=== PATIENT | female | born 1995 | race Caucasian/White ===

== ENCOUNTER 2016-05-31 14:47 | Emergency (ER) | payer BC, OTHER ==
[2016-05-31] MEDS ORDERED: ONDANSETRON 4 MG TAB.RAPDIS PO ONE (16:02)
[2016-05-31] MEDS ORDERED: ONDANSETRON HCL INJ/PF 4 MG/2 ML SDV IM ONE (16:05)
--- NOTE | 2016-05-31 16:05 | ER Document Report ---
ED Medical Screen (RME) - General Stated Complaint: VOMITING Notes: Patient states she started vomiting this morning at 5 AM. No diarrhea, no fever. Patient complains of body aches. States unable to keep even the Zofran ODT down. I have greeted and performed a rapid initial assessment of this patient. A comprehensive ED assessment and evaluation of the patient, analysis of test results and completion of the medical decision making process will be conducted by additional ED providers. TRAVEL OUTSIDE OF THE [place] IN LAST 30 DAYS: No - Related Data Allergies/Adverse Reactions: No Known Allergies Allergy (Verified 05/31/16 16:01) Past Medical History - Immunizations Hx Diphtheria, Pertussis, Tetanus Vaccination: Yes Physical Exam - Vital signs Vitals: Temp Pulse Resp BP Pulse Ox 98.8 F 105 H 16 101/67 98 05/31/16 15:18 05/31/16 15:18 05/31/16 15:18 05/31/16 15:18 05/31/16 15:18 - Respiratory Respiratory status: No respiratory distress Breath sounds: Normal Course - Vital Signs Vital signs: Temp Pulse Resp BP Pulse Ox 98.8 F 105 H 16 101/67 98 05/31/16 15:18 05/31/16 15:18 05/31/16 15:18 05/31/16 15:18 05/31/16 15:18
[2016-05-31] MEDS ORDERED: DIPHENHYDRAMINE HCL 50 MG/ML VIAL IV ONE (21:22)
[2016-05-31] MEDS ORDERED: METOCLOPRAMIDE HCL INJ/PF 10 MG/2 ML SDV IV ONE (21:22)
[2016-05-31] MEDS ORDERED: KETOROLAC TROMETHAMINE INJ/PF 30 MG/1 ML SDV IV ONE (21:23)
--- NOTE | 2016-05-31 21:23 | ER Document Report ---
ED GI/ - General Mode of Arrival: Ambulatory Information source: Patient TRAVEL OUTSIDE OF THE [place] IN LAST 30 DAYS: No - HPI Patient complains to provider of: Abdominal pain, Vomiting Onset: Yesterday Timing/Duration: Persistent Quality of pain: Achy, Cramping Similar symptoms previously: Yes Recently seen / treated by doctor: No <MANDI PEACOCK - Last Filed: 05/31/16 21:23> <YASMIN GALLAGHER - Last Filed: 06/01/16 00:33> - General Chief Complaint: Vomiting Stated Complaint: VOMITING Notes: Patient is a 21-year-old female that presents to the emergency department today with complaints of vomiting since last night. Patient states that she has also had generalized body aches, "side pain", and lower abdominal pain. Patient states that roughly 4-5 years ago she had an episode where she "vomited for 27 days straight". Patient states she had an extensive workup done however she does not believe they found any pathology behind this. Patient states her vomiting "just stopped randomly". Patient denies any diarrhea. Patient states she does not know if she has had a fever but she has been having chills. (MANDI PEACOCK) - Related Data Allergies/Adverse Reactions: No Known Allergies Allergy (Verified 05/31/16 16:01) Past Medical History - General Information source: Patient - Social History Smoking Status: Never Smoker Cigarette use (# per day): No Chew tobacco use (# tins/day): No Frequency of alcohol use: Occasional Drug Abuse: None Lives with: Family Family History: Reviewed & Not Pertinent Patient has suicidal ideation: No Patient has homicidal ideation: No - Medical History Medical History: Negative Past Surgical History: Reports: Hx Abdominal Surgery - hernia repair, Hx Orthopedic Surgery - Left knee, Right shoulder - Immunizations Hx Diphtheria, Pertussis, Tetanus Vaccination: Yes <MANDI PEACOCK - Last Filed: 05/31/16 21:23> Review of Systems - Review of Systems Constitutional: See HPI, Chills. denies: Fever EENT: No symptoms reported Cardiovascular: No symptoms reported Respiratory: No symptoms reported Gastrointestinal: See HPI, Abdominal pain, Vomiting. denies: Diarrhea Genitourinary: No symptoms reported Female Genitourinary: No symptoms reported Musculoskeletal: See HPI, Back pain, Joint pain - generalized body aches Skin: No symptoms reported Hematologic/Lymphatic: No symptoms reported Neurological/Psychological: No symptoms reported -: Yes All other systems reviewed and negative <MANDI PEACOCK - Last Filed: 05/31/16 21:23> Physical Exam <MANDI PEACOCK - Last Filed: 05/31/16 21:23> <YASMIN GALLAGHER - Last Filed: 06/01/16 00:33> - Vital signs Vitals: Temp Pulse Resp BP Pulse Ox 98.8 F 105 H 16 101/67 98 05/31/16 15:18 05/31/16 15:18 05/31/16 15:18 05/31/16 15:18 05/31/16 15:18 - Notes Notes: Physical Exam: General: Alert, appears well. HEENT: Normocephalic. Atraumatic. PERRL. Extraocular movements intact. Oropharynx clear. Neck: Supple. Non-tender. Respiratory: No respiratory distress. Clear and equal breath sounds bilaterally. Cardiovascular: Regular rate and rhythm. Abdominal: Obese. Tenderness across the abdomen with deep palpation to the entire lower half of the abdomen. No distension. Nearly absent bowel sounds. Back: Mild lumbar paraspinal musculature tenderness with palpation. No CVA tenderness with percussion. Extremities: Moves all four extremities. Upper extremities: Normal inspection. Normal ROM. No edema. Lower extremities: Normal inspection. No edema. Normal ROM. Neurological: Normal cognition. AAOx4. Normal speech. Psychological: Normal affect. Normal Mood. Skin: Warm. Dry. Normal color. (MANDI PEACOCK) Course <MANDI PEACOCK - Last Filed: 05/31/16 21:23> - Laboratory Result Diagrams: 05/31/16 22:29 05/31/16 22:29 <YASMIN GALLAGHER - Last Filed: 06/01/16 00:33> - Re-evaluation Re-evalutation: 06/01/16 00:27 Patient has had almost 3 L of IV fluids. She has not been vomiting. She is awakened for reexam, and reports that she does feel much better and feels comfortable going home. Be given a prescription for the Reglan which seemed to work much better than Zofran. (YASMIN GALLAGHER) - Vital Signs Vital signs: Temp Pulse Resp BP Pulse Ox 98.8 F 105 H 16 101/67 98 05/31/16 15:18 05/31/16 15:18 05/31/16 15:18 05/31/16 15:18 05/31/16 15:18 - Laboratory Laboratory results interpreted by me: 05/31/16 05/31/16 22:29 22:29 RDW 14.2 H Seg Neuts % (Manual) 86 H Lymphocytes % (Manual) 5 L Abs Lymphs (Manual) 0.4 L Urine Protein 30 H Urine Ketones TRACE H Ur Leukocyte Esterase TRACE H Discharge <MANDI PEACOCK - Last Filed: 05/31/16 21:23> <YASMIN GALLAGHER - Last Filed: 06/01/16 00:33> - Discharge Clinical Impression: Dehydration Nausea and vomiting Qualifiers: Vomiting type: unspecified Vomiting Intractability: non-intractable Qualified Code(s): R11.2 - Nausea with vomiting, unspecified Condition: Stable Disposition: HOME, SELF-CARE Additional Instructions: Nausea or Vomiting, Nonspecific: Vomiting (or nausea without vomiting) can be caused by many different problems. Of course, it can mean that something's wrong with the stomach, such as "stomach flu," ulcers, or inflammation. But it can also be a symptom of a problem that has nothing to do with the stomach or intestines. Vomiting is common with severe headaches, earaches, and tonsillitis. We see it with pneumonia or heart attacks. Drugs can cause nausea. Many abdominal problems cause vomiting; for example, gallstones, kidney stones, pancreatitis, and intestinal obstruction (blocked bowels). In most cases, curing the vomiting depends on fixing the problem that caused it. For temporary relief, we may use an anti-nausea medicine. For home use, we can prescribe suppositories, chewable pills, pills that dissolve in the mouth, or liquid anti-nausea drugs. If the vomiting seems to be caused by a problem in the stomach, acid-suppressing drugs may be prescribed as well. It's important to avoid dehydration. Sip clear liquids. Take increasing amounts of fluid over the first 24 hours. Then start small amounts of bland foods (such as dry toast, applesauce, mashed potato). Avoid aspirin, tobacco, and alcohol. Gradually resume your usual diet. If the vomiting worsens, if the problem that's making you vomit worsens, or if there's evidence of bleeding in the stomach (such as black, tarry stool, bloody or black vomit, or lightheadedness), you should return immediately. Call your doctor if you aren't improved in 24 to 36 hours. TAKE THE REGLAN PRESCRIBED FOR NAUSEA IF NEEDED. YOU MAY ADD BENADRYL FOR ADDITIONAL NAUSEA CONTROL. DRINK COOL CLEAR LIQUIDS TODAY. REST. FOLLOW UP WITH A LOCAL MEDICAL DOCTOR IF NOT IMPROVING. RETURN TO THE EMERGENCY ROOM IF ANY NEW OR WORSENING SYMPTOMS. We do not have Reglan to dispense, however you will be given Zofran dispense pack for this evening if needed. Prescriptions: Metoclopramide HCl [Reglan 10 mg Tablet] 1 tab PO ASDIR PRN #15 tablet PRN Reason: Forms: Return to Work Scribe Attestation: 06/01/16 00:33 I personally performed the services described in the documentation, reviewed and edited the documentation which was dictated to the scribe in my presence, and it accurately records my words and actions. (YASMIN GALLAGHER) Scribe Documentation - Scribe Written by Davina:: Davina Cornelius, 05/31/2016 2137 acting as scribe for :: Usha <MANDI PEACOCK - Last Filed: 05/31/16 21:23>
[2016-05-31] MEDS: NORMAL SALINE 1000 ML 1,000 ML IV PRN ×2 (22:27→23:00)
[2016-05-31 22:43] LABS: HEMATOCRIT 38.6 % (36.0-47.0); HEMOGLOBIN 13.4 g/dL (12.0-15.5); HGB HCT DIFFERENCE 1.6; MEAN CORPUSCULAR HEMOGLOBIN 29.3 pg (27.0-33.4); MEAN CORPUSCULAR HGB CONC 34.7 g/dL (32.0-36.0); MEAN CORPUSCULAR VOLUME 85 fl (80-97); RED BLOOD COUNT 4.56 10^6/uL (3.72-5.28); RED CELL DISTRIBUTION WIDTH 14.2 % (11.5-14.0); WHITE BLOOD COUNT 7.8 10^3/uL (4.0-10.5)
[2016-05-31 22:49] LABS: AMORPHOUS SEDIMENT,URINE 1+ /HPF; APPEARANCE,URINE TURBID; BILIRUBIN,URINE NEGATIVE (NEGATIVE); GLUCOSE, URINE NEGATIVE (NEGATIVE); KETONES,URINE TRACE mg/dL (NEGATIVE); LEUKOCYTE ESTERASE,URINE TRACE (NEGATIVE); NITRITE,URINE NEGATIVE (NEGATIVE); PROTEIN,URINE 30 mg/dL (NEGATIVE); URINE SPECIFIC GRAVITY 1.033; UROBILINOGEN,URINE NEGATIVE mg/dL (<2.0)
[2016-05-31 22:57] LABS: ALANINE AMINOTRANSFERASE 45 U/L (9-52); ALBUMIN 4.7 g/dL (3.5-5.0); ALKALINE PHOSPHATASE 76 U/L (38-126); ANION GAP 14 (5-19); ASPARTATE AMINO TRANSFERASE 34 U/L (14-36); BILIRUBIN,DIRECT 0.1 mg/dL (0.0-0.4); BILIRUBIN,TOTAL 0.8 mg/dL (0.2-1.3); BLOOD UREA NITROGEN 12 mg/dL (7-20); CALCIUM 9.2 mg/dL (8.4-10.2); CARBON DIOXIDE 25 mmol/L (22-30); CHLORIDE 101 mmol/L (98-107); CREATININE RESULT 0.68 mg/dL (0.52-1.25); GLUCOSE 93 mg/dL (75-110); POTASSIUM 3.7 mmol/L (3.6-5.0); TOTAL PROTEIN 7.7 g/dL (6.3-8.2)
[2016-05-31 23:00] LABS: BASOPHILS % (MANUAL) 0 % (0-2); EOSINOPHILS % (MANUAL) 1 % (0-6); LYMPHOCYTES % (MANUAL) 5 % (13-45); TOTAL CELLS COUNTED 100
[2016-05-31 23:01] LABS: ANISOCYTOSIS SLIGHT; TOXIC GRANULATION SLIGHT
[2016-05-31] MEDS ORDERED: DEXTROSE 5%-LACTATED RINGERS 1,000 ML IV ONE (23:10)
[2016-06-01] MEDS ORDERED: ONDANSETRON ODT 4 MG TAB (6 TAB/DSPK) PO PRN (00:34)
[2016-06-01 01:16] VITALS: BP 103/53
== END 2016-06-01 01:16 | disposition home or self-care (01) ==
LOC: ER 14:47
DX: E86.0 Dehydration (principal); R11.2 Nausea with vomiting, unspecified; R10.9 Unspecified abdominal pain; R11.10 Vomiting, unspecified; R52 Pain, unspecified; R50.9 Fever, unspecified
CPT/HCPCS: 99284; 96372; 96361; 96374; 96375; 36415; 87040; 84703; 85025; 80053; 81001; J1200; J1885; J2765; J2405; J7030

== ENCOUNTER 2016-06-30 17:28 | Emergency (ER) | payer BC ==
--- NOTE | 2016-06-30 20:17 | ER Document Report ---
ED GI/ - General Chief Complaint: Vaginal Bleeding Stated Complaint: LOWER ABDOMINAL PAIN Mode of Arrival: Ambulatory Information source: Patient Notes: Patient is a 21-year-old female presenting to the emergency department for vaginal bleeding and abdominal cramping. Patient was seen and clinic today and had a positive urine test at 13:00. Patient is G3L1M1. Patient states that she has had vaginal bleeding ongoing the past 2-3 weeks that is waxing and waning. Patient states she has had abdominal cramping for 2 days. Patient is using tampon and she knows she is. Patient states she has dark brown blood and lots of blood comes out after taking the tampon out. Patient's last menstrual cycle was 05/11/16. Patient has a history of miscarriage 2 years ago and ovarian cysts. Patient has no known allergies. TRAVEL OUTSIDE OF THE [place] IN LAST 30 DAYS: No - HPI Patient complains to provider of: , Vaginal bleeding Onset: Other - see HPI note Quality of pain: Cramping Context: Vaginal bleeding (Compared to normal period): Spotting LMP: 05/11/16 : 3 Para: 1 Abortions: 1 - Related Data Allergies/Adverse Reactions: No Known Allergies Allergy (Verified 06/30/16 19:24) Past Medical History - General Information source: Patient Last Menstrual Period: 05/12/2016 - Social History Smoking Status: Unknown if Ever Smoked Family History: None Patient has suicidal ideation: No Patient has homicidal ideation: No Renal/ Medical History: Reports: Hx Ovarian Cysts Past Surgical History: Reports: Hx Abdominal Surgery - hernia repair, Hx Orthopedic Surgery - Left knee, Right shoulder - Immunizations Hx Diphtheria, Pertussis, Tetanus Vaccination: Yes Review of Systems - Review of Systems Constitutional: No symptoms reported EENT: No symptoms reported Cardiovascular: No symptoms reported Respiratory: No symptoms reported Gastrointestinal: No symptoms reported Genitourinary: No symptoms reported Female Genitourinary: See HPI, Last menstrual period - 05/11/16, , Irregular period, Vaginal bleeding Musculoskeletal: No symptoms reported Skin: No symptoms reported Hematologic/Lymphatic: No symptoms reported Neurological/Psychological: No symptoms reported -: Yes All other systems reviewed and negative Physical Exam - Vital signs Vitals: Temp Pulse Resp BP Pulse Ox 98.5 F 84 16 112/66 99 06/30/16 17:49 06/30/16 17:49 06/30/16 17:49 06/30/16 17:49 06/30/16 17:49 Interpretation: Normal - General General appearance: Appears well, Alert In distress: Mild - HEENT Head: Normocephalic, Atraumatic Eyes: Normal Pupils: PERRL Mucous membranes: Moist - Respiratory Respiratory status: No respiratory distress Chest status: Nontender Breath sounds: Normal Chest palpation: Normal - Cardiovascular Rhythm: Regular Heart sounds: Normal auscultation Murmur: No - Abdominal Inspection: Normal Distension: No distension Bowel sounds: Normal Tenderness: Nontender Organomegaly: No organomegaly - Genitourinary External exam: Normal Speculum exam: Cervix closed Vaginal bleeding: None - no active bleeding but some dried/old blood - Back Back: Normal, Nontender - Extremities General upper extremity: Normal inspection, Normal ROM, Normal strength General lower extremity: Normal inspection, Normal ROM, Normal strength - Neurological Neuro grossly intact: Yes Cognition: Normal Orientation: AAOx4 [place] Coma Scale Eye Opening: Spontaneous [place] Coma Scale Verbal: Oriented [place] Coma Scale Motor: Obeys Commands Kiera Coma Scale Total: 15 Speech: Normal Sensory: Normal - Psychological Associated symptoms: Normal affect, Normal mood - Skin Skin Temperature: Warm Skin Moisture: Dry Course - Vital Signs Vital signs: Temp Pulse Resp BP Pulse Ox 98.5 F 84 16 112/66 99 06/30/16 17:49 06/30/16 17:49 06/30/16 17:49 06/30/16 17:49 06/30/16 17:49 - Laboratory Laboratory results interpreted by me: 06/30/16 19:36 Beta HCG, Quant 409.90 H Scribe Documentation - Scribe Written by Scribmalik:: Candi Delgado 06/30/16 20:20 acting as scribe for :: Diego
--- NOTE | 2016-06-30 20:56 | ER Document Report ---
ED Medical Screen (RME) - General Mode of Arrival: Ambulatory Information source: Patient TRAVEL OUTSIDE OF THE [place] IN LAST 30 DAYS: No - HPI Onset: Other - see HPI note - General Stated Complaint: LOWER ABDOMINAL PAIN Notes: Patient is a 21-year-old female presenting to the emergency department for vaginal bleeding and abdominal cramping. Patient was seen and clinic today and had a positive urine test at 13:00. Patient is G3L1M1. Patient states that she has had vaginal bleeding ongoing the past 2-3 weeks that is waxing and waning. Patient states she has had abdominal cramping for 2 days. Patient is using tampon and she knows she is. Patient states she has dark brown blood and lots of blood comes out after taking the tampon out. Patient's last menstrual cycle was 05/11/16. Patient has a history of miscarriage 2 years ago and ovarian cysts. Patient has no known allergies. (LEVON DELGADO) - Related Data Allergies/Adverse Reactions: No Known Allergies Allergy (Verified 06/30/16 19:24) Past Medical History - General Information source: Patient Last Menstrual Period: 05/12/2016 - Social History Family history: None Renal/ Medical History: Reports: Hx Ovarian Cysts Past Surgical History: Reports: Hx Abdominal Surgery - hernia repair, Hx Orthopedic Surgery - Left knee, Right shoulder - Immunizations Hx Diphtheria, Pertussis, Tetanus Vaccination: Yes Review of Systems - Review of Systems Constitutional: No symptoms reported EENT: No symptoms reported Cardiovascular: No symptoms reported Respiratory: No symptoms reported Gastrointestinal: See HPI, Abdominal pain Genitourinary: No symptoms reported Female Genitourinary: See HPI, Last menstrual period - 05/11/16, , Vaginal bleeding Musculoskeletal: No symptoms reported Skin: No symptoms reported Hematologic/Lymphatic: No symptoms reported Neurological/Psychological: No symptoms reported -: Yes All other systems reviewed and negative Physical Exam - Vital signs Interpretation: Normal - General General appearance: Appears well, Alert In distress: Mild - HEENT Head: Normocephalic, Atraumatic Eyes: Normal Pupils: PERRL Mucous membranes: Moist - Respiratory Respiratory status: No respiratory distress Chest status: Nontender Breath sounds: Normal Chest palpation: Normal - Cardiovascular Rhythm: Regular Heart sounds: Normal auscultation Murmur: No - Abdominal Inspection: Normal Distension: No distension Bowel sounds: Normal Tenderness: Nontender Organomegaly: No organomegaly - Genitourinary External exam: Normal Speculum exam: Cervix closed Vaginal bleeding: None - no active bleeding but some dried/old blood - Back Back: Normal, Nontender - Extremities General upper extremity: Normal inspection, Normal ROM, Normal strength General lower extremity: Normal inspection, Normal ROM, Normal strength - Neurological Neuro grossly intact: Yes Cognition: Normal Orientation: AAOx4 [place] Coma Scale Eye Opening: Spontaneous Kiera Coma Scale Verbal: Oriented Kiera Coma Scale Motor: Obeys Commands Kiera Coma Scale Total: 15 Speech: Normal Sensory: Normal - Psychological Associated symptoms: Normal affect, Normal mood - Skin Skin Temperature: Warm Skin Moisture: Dry Skin Color: Normal Course - Re-evaluation Re-evalutation: 06/30/16 21:01 Patient presented the emergency per with chief plain of addled vaginal bleeding and lower abdominal cramping. Patient states she is . She noticed for the last 2 or 3 days she's had dark spotting she says she has a tampon in and she doesn't bleeding so she takes the tampon out there is no bright red bleeding. On pelvic examination cervical os is closed she got full blood in there but not active bleeding. Quantitative beta hCG is 400. She has some lower abdominal pain but no guarding rebound or rigidity straight catheter urinalysis is pending at this point. She is transferred to the back pending urinalysis and further assessment and disposition. (BECCA DIAZ) - Vital Signs Vital signs: Temp Pulse Resp BP Pulse Ox 98.5 F 84 16 112/66 99 06/30/16 17:49 06/30/16 17:49 06/30/16 17:49 06/30/16 17:49 06/30/16 17:49 - Laboratory Laboratory results interpreted by me: 06/30/16 19:36 Beta HCG, Quant 409.90 H Scribe Documentation - Scribe Written by Scribe:: Levon Delgado 06/30/16 20:55 acting as scribe for :: Diego
--- NOTE | 2016-06-30 21:39 | ER Document Report ---
ED GI/ - General Chief Complaint: Vaginal Bleeding Stated Complaint: LOWER ABDOMINAL PAIN Time seen by provider: 21:38 Mode of Arrival: Ambulatory Information source: Patient TRAVEL OUTSIDE OF THE [place] IN LAST 30 DAYS: No - HPI Patient complains to provider of: Pelvic pain, , Vaginal bleeding Onset: Other - 2 weeks Timing/Duration: Waxing and waning Quality of pain: Cramping Severity at maximum: Mild Severity in ED: None Vaginal bleeding (Compared to normal period): Spotting, Heavier, Passing clots Menstrual period history: Associated symptoms: Nausea Exacerbated by: Denies Relieved by: Denies Recently seen / treated by doctor: Yes Notes: 07/01/16 02:40 Patient is a 21-year-old female presenting to the emergency department for vaginal bleeding and abdominal cramping that's been going on for the past 2-3 weeks, at times spotting and at other times it's heavier with clots, she's had mild cramping at times as well, patient was seen by her [facility] earlier in the today and had a positive test, was told to come to the emergency room for further evaluation Patient is G3L1M1. - Related Data Allergies/Adverse Reactions: No Known Allergies Allergy (Verified 06/30/16 21:53) Past Medical History - General Information source: Patient Last Menstrual Period: 05/12/2016 - Social History Smoking Status: Unknown if Ever Smoked Family History: Reviewed & Not Pertinent Patient has suicidal ideation: No Patient has homicidal ideation: No Renal/ Medical History: Reports: Hx Ovarian Cysts. Denies: Hx Peritoneal Dialysis Past Surgical History: Reports: Hx Abdominal Surgery - hernia repair, Hx Orthopedic Surgery - Left knee, Right shoulder - Immunizations Hx Diphtheria, Pertussis, Tetanus Vaccination: Yes Review of Systems - Review of Systems Constitutional: No symptoms reported EENT: No symptoms reported Cardiovascular: No symptoms reported Respiratory: No symptoms reported Gastrointestinal: No symptoms reported Genitourinary: No symptoms reported Female Genitourinary: See HPI, , Vaginal bleeding Musculoskeletal: No symptoms reported Skin: No symptoms reported Hematologic/Lymphatic: No symptoms reported Neurological/Psychological: No symptoms reported -: Yes All other systems reviewed and negative Physical Exam - Vital signs Vitals: Temp Pulse Resp BP Pulse Ox 98.5 F 84 16 112/66 99 06/30/16 17:49 06/30/16 17:49 06/30/16 17:49 06/30/16 17:49 06/30/16 17:49 Interpretation: Normal - General General appearance: Appears well, Alert - HEENT Head: Normocephalic, Atraumatic Eyes: Normal Pupils: PERRL - Respiratory Respiratory status: No respiratory distress Chest status: Nontender Breath sounds: Normal Chest palpation: Normal - Cardiovascular Rhythm: Regular Heart sounds: Normal auscultation Murmur: No - Abdominal Inspection: Normal Distension: No distension Bowel sounds: Normal Tenderness: Nontender Organomegaly: No organomegaly - Back Back: Normal, Nontender - Extremities General upper extremity: Normal inspection, Nontender, Normal color, Normal ROM , Normal temperature General lower extremity: Normal inspection, Nontender, Normal color, Normal ROM , Normal temperature, Normal weight bearing. No: Becky's sign - Neurological Neuro grossly intact: Yes Cognition: Normal Orientation: AAOx4 [place] Coma Scale Eye Opening: Spontaneous [place] Coma Scale Verbal: Oriented [place] Coma Scale Motor: Obeys Commands [place] Coma Scale Total: 15 Speech: Normal Motor strength normal: LUE, RUE, LLE, RLE - Psychological Associated symptoms: Normal affect, Normal mood - Skin Skin Temperature: Warm Skin Moisture: Dry Skin Color: Normal Course - Re-evaluation Re-evalutation: 07/01/16 02:45 Lab findings were discussed with patient at bedside, patient's quantitative hCG is only 409, her last menstrual period was May 11, patient was advised to follow back up with [facility] or return to the emergency room if symptoms worsen, she was given a slip to get an outpatient beta quantitative hCG within the next 2-3 days, patient acknowledges understanding and agreement with this plan - Vital Signs Vital signs: Temp Pulse Resp BP Pulse Ox 98.2 F 87 12 120/73 98 06/30/16 21:58 06/30/16 21:58 06/30/16 21:58 06/30/16 21:58 06/30/16 21:58 - Laboratory Laboratory results interpreted by me: 06/30/16 06/30/16 19:36 20:45 Beta HCG, Quant 409.90 H Urine Ketones TRACE H Discharge - Discharge Clinical Impression: Vaginal bleeding before 22 weeks gestation Qualifiers: Weeks of gestation: less than 8 weeks Qualified Code(s): Z3A.01 - Less than 8 weeks gestation of Condition: Stable Disposition: HOME, SELF-CARE Instructions: Bleeding During Early ([facility]), ([facility]) Additional Instructions: Have repeat blood work done in 2-3 days to check your hormone level. Follow up with your [facility] in 2-3 days. Return to the nearest emergency room immediately if symptoms worsen or any additional concerns. Forms: Follow-Up Laboratory Testing
[2016-06-30 21:53] LABS: AMORPHOUS SEDIMENT,URINE 1+ /HPF; APPEARANCE,URINE TURBID; BILIRUBIN,URINE NEGATIVE (NEGATIVE); GLUCOSE, URINE NEGATIVE (NEGATIVE); KETONES,URINE TRACE mg/dL (NEGATIVE); LEUKOCYTE ESTERASE,URINE NEGATIVE (NEGATIVE); NITRITE,URINE NEGATIVE (NEGATIVE); PROTEIN,URINE NEGATIVE (NEGATIVE); URINE SPECIFIC GRAVITY 1.032; UROBILINOGEN,URINE NEGATIVE mg/dL (<2.0)
[2016-06-30 21:59] VITALS: BP 120/73
== END 2016-06-30 21:57 | disposition home or self-care (01) ==
LOC: ER 17:28
DX: O46.91 Antepartum hemorrhage, unspecified, first trimester (principal); Z3A.01 Less than 8 weeks gestation of pregnancy; R10.30 Lower abdominal pain, unspecified
CPT/HCPCS: 36415; 51701; 81001; 84702; 86900; 86901; 99284

== ENCOUNTER → 2016-07-02 | Outpatient (CLI) | payer BC | LOC: LAB 17:20 | PROVIDERS: ATTEND Emergency Medicine | DX: O46.90 Antepartum hemorrhage, unspecified, unspecified trimester (principal) | CPT/HCPCS: 36415; 84702 ==

== ENCOUNTER → 2016-07-05 | Outpatient (CLI) | payer BC | LOC: OD 10:17 | PROVIDERS: ATTEND Obstetrics & Gynecology | DX: O20.0 Threatened abortion (principal) | CPT/HCPCS: 36415; 84702 ==

== ENCOUNTER 2016-07-06 07:28 | Day surgery (SDC) | payer BC ==
[2016-07-06 08:06] LABS: ABSOLUTE EOSINOPHILS # (AUTO) 0.1 10^3/uL (0.0-0.6); ABSOLUTE LYMPHOCYTES (AUTO) 1.1 10^3/uL (0.5-4.7); ABSOLUTE MONOCYTES (AUTO) 0.4 10^3/uL (0.1-1.4); ABSOLUTE NEUT (AUTO) 3.6 10^3/uL (1.7-8.2); BASOPHILS % (AUTO) 0.5 % (0-2); EOSINOPHILS % (AUTO) 1.4 % (0-6); HEMATOCRIT 35.3 % (36.0-47.0); HEMOGLOBIN 12.1 g/dL (12.0-15.5); LYMPHOCYTES % (AUTO) 20.9 % (13-45); MEAN CORPUSCULAR HEMOGLOBIN 29.4 pg (27.0-33.4); MEAN CORPUSCULAR HGB CONC 34.4 g/dL (32.0-36.0); MEAN CORPUSCULAR VOLUME 85 fl (80-97); MONOCYTES % (AUTO) 8.2 % (3-13); RED BLOOD COUNT 4.13 10^6/uL (3.72-5.28); RED CELL DISTRIBUTION WIDTH 14.1 % (11.5-14.0); WHITE BLOOD COUNT 5.1 10^3/uL (4.0-10.5)
[2016-07-06] MEDS ORDERED: FENTANYL CITRATE INJ/PF 100 MCG/2 ML AMPUL ONE ×2 (09:06→10:23)
[2016-07-06] MEDS ORDERED: PROPOFOL INJ 200 MG/20 ML VIAL IV ONE (09:06)
[2016-07-06] MEDS ORDERED: MIDAZOLAM 2 MG/2 ML INJ ONE (09:06)
[2016-07-06] MEDS ORDERED: FENTANYL CITRATE INJ/PF 100 MCG/2 ML AMPUL IV PRN ×3 (09:41)
[2016-07-06] MEDS ORDERED: PROMETHAZINE HCL INJ 25 MG/1 ML VIAL IV PRN ×2 (09:41)
[2016-07-06] MEDS ORDERED: DIPHENHYDRAMINE HCL 50 MG/ML VIAL IV PRN (09:41)
[2016-07-06] MEDS ORDERED: MORPHINE SULFATE 10 MG/ML INJ IV PRN (09:41)
[2016-07-06] MEDS ORDERED: OXYCODONE-ACETAMINOPHEN 5-325 MG TABLET PO PRN ×3 (09:41→10:22)
[2016-07-06] MEDS ORDERED: MEPERIDINE HCL/PF INJ 25 MG/1 ML DISP.SYRIN IV PRN (09:41)
--- NOTE | 2016-07-06 09:59 | Operative Report ---
Operative Report DATE OF SURGERY: 07/06/16 PREOPERATIVE DIAGNOSIS: Miscarriage versus ectopic POSTOPERATIVE DIAGNOSIS: Most likely miscarriage OPERATION: Suction D&C SURGEON: SHINE MEADOWS ANESTHESIA: GA TISSUE REMOVED OR ALTERED: Uterine contents COMPLICATIONS: None ESTIMATED BLOOD LOSS: 10 mL INTRAOPERATIVE FINDINGS: Sound to 10 cm before and after the case, dilated cervix and tissue present in the uterus. PROCEDURE: Patient has a very slowly rising Quant hCG now at the level of 645. Ultrasound shows no intrauterine . We have ruled out a viable because of the very slowly rising Quant but are concerned about risk of ectopic. This reason we are proceeding with a D&C to see if there is a in the uterus. Patient was taken to the OR and placed in supine position. Gen. anesthesia was induced. She is placed in dorsal lithotomy position using Manas stirrups. Her perineum and vagina were prepared and draped in sterile fashion. Weighted speculum was placed in the vagina. Anterior lip cervix grasped with a tenaculum. Sound 10 cm before and after the case. The cervix was open and did not need dilatation. There was tissue passing. A size 8 suction curette was then used to evacuate uterine contents. At the end the end of the case all instruments were removed. She she was placed in supine position and extubated and taken to recovery in stable condition.
[2016-07-06] MEDS ORDERED: ONDANSETRON 4 MG TAB.RAPDIS PO PRN (10:22)
[2016-07-06] MEDS ORDERED: SUCCINYLCHOLINE CHLORIDE INJ 200 MG/10 ML VIAL ONE (10:38)
[2016-07-06] MEDS ORDERED: KETOROLAC TROMETHAMINE 60 MG/2 ML SDV ONE (10:38)
[2016-07-06] MEDS ORDERED: ONDANSETRON HCL INJ/PF 4 MG/2 ML SDV ONE (10:38)
[2016-07-06] MEDS ORDERED: DEXAMETHASONE SOD PHOSPHATE INJ 4 MG/1 ML VIAL ONE (10:38)
[2016-07-06 12:03] VITALS: BP 115/72
== END 2016-07-06 12:00 | disposition home or self-care (01) ==
LOC: OROUT 07:28
PROVIDERS: ATTEND Obstetrics & Gynecology
PROC: 10D17ZZ Extraction of Products of Conception, Retained, Via Natural or Artificial Opening (ICD-10-PCS; principal; 2016-07-06 09:30)
DX: O02.1 Missed abortion (principal)
CPT/HCPCS: 36415; 85025; 81025; 88305 ×2; 59820; J2250; J1100; J1885; J3010; J0330; J2405; J2704; 1965

== ENCOUNTER → 2016-07-07 | Outpatient (CLI) | payer BC ==
[2016-07-07 13:28] LABS: ABSOLUTE LYMPHOCYTES (AUTO) 1.5 10^3/uL (0.5-4.7); ABSOLUTE MONOCYTES (AUTO) 0.7 10^3/uL (0.1-1.4); ABSOLUTE NEUT (AUTO) 9.2 10^3/uL (1.7-8.2); BASOPHILS % (AUTO) 0.2 % (0-2); EOSINOPHILS % (AUTO) 0.2 % (0-6); HEMATOCRIT 34.6 % (36.0-47.0); HEMOGLOBIN 11.8 g/dL (12.0-15.5); HGB HCT DIFFERENCE 0.8; LYMPHOCYTES % (AUTO) 13.2 % (13-45); MEAN CORPUSCULAR HGB CONC 34.1 g/dL (32.0-36.0); MEAN CORPUSCULAR VOLUME 85 fl (80-97); MONOCYTES % (AUTO) 5.7 % (3-13); RED BLOOD COUNT 4.08 10^6/uL (3.72-5.28); RED CELL DISTRIBUTION WIDTH 14.1 % (11.5-14.0); SEGMENTED NEUTROPHILS % (AUTO) 80.7 % (42-78)
[2016-07-07 13:35] LABS: WHITE BLOOD COUNT 11.4 10^3/uL (4.0-10.5)
[2016-07-07 14:05] LABS: ALANINE AMINOTRANSFERASE 24 U/L (9-52); ALBUMIN 4.4 g/dL (3.5-5.0); ALKALINE PHOSPHATASE 62 U/L (38-126); ANION GAP 15 (5-19); ASPARTATE AMINO TRANSFERASE 16 U/L (14-36); BILIRUBIN,DIRECT 0.4 mg/dL (0.0-0.4); BILIRUBIN,TOTAL 0.6 mg/dL (0.2-1.3); BLOOD UREA NITROGEN 12 mg/dL (7-20); CALCIUM 9.3 mg/dL (8.4-10.2); CARBON DIOXIDE 23 mmol/L (22-30); CHLORIDE 104 mmol/L (98-107); CREATININE RESULT 0.68 mg/dL (0.52-1.25); GLUCOSE 107 mg/dL (75-110); POTASSIUM 4.1 mmol/L (3.6-5.0); SODIUM 141.6 mmol/L (137-145); TOTAL PROTEIN 7.5 g/dL (6.3-8.2)
== END ==
LOC: OD 12:27
PROVIDERS: ATTEND Obstetrics & Gynecology
DX: O00.90 Unspecified ectopic pregnancy without intrauterine pregnancy (principal)
CPT/HCPCS: 36415; 80053; 84702; 85025

== ENCOUNTER 2016-08-20 21:19 | Emergency (ER) | payer BC ==
[2016-08-20] MEDS ORDERED: NORMAL SALINE 1000 ML 1,000 ML IV PRN (21:26)
[2016-08-20 21:35] LABS: ABSOLUTE EOSINOPHILS # (AUTO) 0.1 10^3/uL (0.0-0.6); ABSOLUTE LYMPHOCYTES (AUTO) 1.3 10^3/uL (0.5-4.7); ABSOLUTE MONOCYTES (AUTO) 0.9 10^3/uL (0.1-1.4); ABSOLUTE NEUT (AUTO) 5.9 10^3/uL (1.7-8.2); BASOPHILS % (AUTO) 0.5 % (0-2); EOSINOPHILS % (AUTO) 1.2 % (0-6); HEMATOCRIT 36.8 % (36.0-47.0); HEMOGLOBIN 12.5 g/dL (12.0-15.5); HGB HCT DIFFERENCE 0.7; LYMPHOCYTES % (AUTO) 16.1 % (13-45); MEAN CORPUSCULAR HEMOGLOBIN 28.9 pg (27.0-33.4); MEAN CORPUSCULAR VOLUME 85 fl (80-97); MONOCYTES % (AUTO) 10.8 % (3-13); RED BLOOD COUNT 4.32 10^6/uL (3.72-5.28); RED CELL DISTRIBUTION WIDTH 13.1 % (11.5-14.0); SEGMENTED NEUTROPHILS % (AUTO) 71.4 % (42-78); WHITE BLOOD COUNT 8.2 10^3/uL (4.0-10.5)
[2016-08-20 21:48] LABS: ALANINE AMINOTRANSFERASE 27 U/L (9-52); ALBUMIN 4.6 g/dL (3.5-5.0); ALKALINE PHOSPHATASE 79 U/L (38-126); ANION GAP 14 (5-19); ASPARTATE AMINO TRANSFERASE 25 U/L (14-36); BILIRUBIN,DIRECT 0.3 mg/dL (0.0-0.4); BILIRUBIN,TOTAL 0.7 mg/dL (0.2-1.3); BLOOD UREA NITROGEN 16 mg/dL (7-20); CALCIUM 9.7 mg/dL (8.4-10.2); CARBON DIOXIDE 24 mmol/L (22-30); CHLORIDE 103 mmol/L (98-107); CREATININE RESULT 0.88 mg/dL (0.52-1.25); GLUCOSE 84 mg/dL (75-110); POTASSIUM 3.8 mmol/L (3.6-5.0); SODIUM 140.7 mmol/L (137-145)
[2016-08-20] MEDS ORDERED: NORMAL SALINE 1000 ML 1,000 ML IV ONE (22:10)
--- NOTE | 2016-08-20 22:34 | ER Document Report ---
ED Syncope and Near Syncope - General Chief Complaint: Syncope Stated Complaint: POSSIBLE SYNCOPE Time Seen by Provider: 08/20/16 21:26 Notes: Patient is a 21-year-old female who is brought in for syncope. Patient was playing softball all day and 90 weather. Patient states that she did not urinate much today. Denies any past medical history, allergies. Patient had D& C a few weeks ago. Godfrey nauseated and vomited on the way here. No abdominal pain. No diarrhea. No headache or fever. TRAVEL OUTSIDE OF THE [place] IN LAST 30 DAYS: No - HPI Patient complains to provider of: Fainting Episode witnessed (by whom): Yes Symptoms prior to episode: Lightheaded Quality of pain: No pain - Related Data Allergies/Adverse Reactions: No Known Allergies Allergy (Verified 06/30/16 21:53) Past Medical History - General Information source: Patient - Social History Smoking Status: Unknown if Ever Smoked Family History: Reviewed & Not Pertinent - Past Medical History Cardiac Medical History: Denies: Hx Coronary Artery Disease, Hx Heart Attack, Hx Hypertension Pulmonary Medical History: Denies: Hx Asthma, Hx Bronchitis, Hx COPD, Hx Pneumonia Neurological Medical History: Denies: Hx Cerebrovascular Accident, Hx Seizures Renal/ Medical History: Reports: Hx Ovarian Cysts. Denies: Hx Peritoneal Dialysis Musculoskeltal Medical History: Denies Hx Arthritis Past Surgical History: Reports: Hx Abdominal Surgery - hernia repair, Hx Orthopedic Surgery - Left knee, Right shoulder - Immunizations Hx Diphtheria, Pertussis, Tetanus Vaccination: Yes Review of Systems - Review of Systems Constitutional: No symptoms reported EENT: No symptoms reported Cardiovascular: No symptoms reported Respiratory: No symptoms reported Gastrointestinal: No symptoms reported Genitourinary: No symptoms reported Female Genitourinary: No symptoms reported Musculoskeletal: No symptoms reported Skin: No symptoms reported Hematologic/Lymphatic: No symptoms reported Neurological/Psychological: See HPI Physical Exam - Vital signs Vitals: Resp Pulse Ox 19 100 08/20/16 21:29 08/20/16 21:29 Interpretation: Tachycardic - General General appearance: Lethargic In distress: Mild - HEENT Head: Normocephalic, Atraumatic Eyes: Normal Pupils: PERRL Mucous membranes: Dry - Respiratory Respiratory status: No respiratory distress Chest status: Nontender Breath sounds: Normal Chest palpation: Normal - Cardiovascular Rhythm: Regular Heart sounds: Normal auscultation Murmur: No - Abdominal Inspection: Normal Distension: No distension Bowel sounds: Normal Tenderness: Nontender Organomegaly: No organomegaly - Back Back: Normal, Nontender - Extremities General upper extremity: Normal inspection, Nontender, Normal color, Normal ROM , Normal temperature General lower extremity: Normal inspection, Nontender, Normal color, Normal ROM , Normal temperature, Normal weight bearing. No: Becky's sign - Neurological Neuro grossly intact: Yes Cognition: Normal Orientation: AAOx4 [place] Coma Scale Eye Opening: Spontaneous [place] Coma Scale Verbal: Oriented [place] Coma Scale Motor: Obeys Commands [place] Coma Scale Total: 15 Speech: Normal Motor strength normal: LUE, RUE, LLE, RLE Sensory: Normal - Psychological Associated symptoms: Normal affect, Normal mood - Skin Skin Temperature: Warm Skin Moisture: Dry Skin Color: Normal Course - Re-evaluation Re-evalutation: 08/20/16 22:15 Patient is feeling better after fluid rehydration. Blood work within normal limits. HCG is negative. Patient is able to urinate and take p.o. She will be discharged home and is instructed to drink more fluids if she is going to be out in hot weather. Stable for discharge. Return if any worsening or concerning symptoms. Understands and agrees with plan. - Vital Signs Vital signs: Temp Pulse Resp BP Pulse Ox 20 121/75 99 08/20/16 21:33 08/20/16 21:33 08/20/16 21:33 - Laboratory Result Diagrams: 08/20/16 21:16 08/20/16 21:16 Discharge - Discharge Clinical Impression: Syncope and collapse Heat exhaustion Qualifiers: Encounter type: initial encounter Qualified Code(s): T67.5XXA - Heat exhaustion , unspecified, initial encounter Condition: Stable Disposition: HOME, SELF-CARE Instructions: Heat Exhaustion ([facility]), Syncopal Episode ([facility]) Forms: Return to Work
[2016-08-20 23:08] LABS: APPEARANCE,URINE SLIGHTLY-CLOUDY; BILIRUBIN,URINE NEGATIVE (NEGATIVE); GLUCOSE, URINE NEGATIVE (NEGATIVE); KETONES,URINE NEGATIVE (NEGATIVE); LEUKOCYTE ESTERASE,URINE MODERATE (NEGATIVE); NITRITE,URINE NEGATIVE (NEGATIVE); PROTEIN,URINE NEGATIVE (NEGATIVE); UROBILINOGEN,URINE NEGATIVE mg/dL (<2.0)
[2016-08-20 23:14] VITALS: BP 118/75
--- NOTE | 2016-08-21 13:04 | EKG REPORT ---
SEVERITY:- NORMAL ECG - SINUS RHYTHM : Confirmed by: Kelsea Arnett MD 21-Aug-2016 13:02:18
== END 2016-08-20 22:45 | disposition home or self-care (01) ==
LOC: ER 21:19
DX: T67.5XXA Heat exhaustion, unspecified, initial encounter (principal); R55 Syncope and collapse; R11.2 Nausea with vomiting, unspecified; X32.XXXA Exposure to sunlight, initial encounter; Y93.64 Activity, baseball
CPT/HCPCS: 93005; 99284; 96360; 36415; 84702; 85025; 80053; 81001; 93010; J7030

== ENCOUNTER 2016-11-03 10:53 | Emergency (ER) | payer BC, MEDICAID ==
--- NOTE | 2016-11-03 11:23 | ER Document Report ---
ED Medical Screen (RME) - General Chief Complaint: Abdominal Cramping Stated Complaint: WEAKNESS Time Seen by Provider: 11/03/16 11:20 Mode of Arrival: Ambulatory Information source: Patient Notes: This is a 21-year-old female approximately 12 weeks , history of miscarriage 2 in the past who presents to the emergency room with nausea, vomiting, not tolerating fluid and abdominal cramping. Patient was evaluated at [facility] today and referred to the ER. TRAVEL OUTSIDE OF THE [place] IN LAST 30 DAYS: No - Related Data Allergies/Adverse Reactions: No Known Allergies Allergy (Verified 11/03/16 11:07) Past Medical History - Social History Family history: None - Past Medical History Cardiac Medical History: Denies: Hx Coronary Artery Disease, Hx Heart Attack, Hx Hypertension Pulmonary Medical History: Denies: Hx Asthma, Hx Bronchitis, Hx COPD, Hx Pneumonia Neurological Medical History: Denies: Hx Cerebrovascular Accident, Hx Seizures Renal/ Medical History: Reports: Hx Ovarian Cysts. Denies: Hx Peritoneal Dialysis Musculoskeltal Medical History: Denies Hx Arthritis Past Surgical History: Reports: Hx Abdominal Surgery - hernia repair, Hx Orthopedic Surgery - Left knee, Right shoulder - Immunizations Hx Diphtheria, Pertussis, Tetanus Vaccination: Yes Physical Exam - Vital signs Vitals: Temp Pulse Resp BP Pulse Ox 98.8 F 84 18 108/69 99 11/03/16 11:07 11/03/16 11:07 11/03/16 11:07 11/03/16 11:07 11/03/16 11:07 Course - Vital Signs Vital signs: Temp Pulse Resp BP Pulse Ox 98.8 F 84 18 108/69 99 11/03/16 11:07 11/03/16 11:07 11/03/16 11:07 11/03/16 11:07 11/03/16 11:07
[2016-11-03 11:49] LABS: ABSOLUTE MONOCYTES (AUTO) 0.4 10^3/uL (0.1-1.4); ABSOLUTE NEUT (AUTO) 3.4 10^3/uL (1.7-8.2); BASOPHILS % (AUTO) 0.5 % (0-2); HEMATOCRIT 35.9 % (36.0-47.0); HEMOGLOBIN 12.4 g/dL (12.0-15.5); HGB HCT DIFFERENCE 1.3; LYMPHOCYTES % (AUTO) 20.3 % (13-45); MEAN CORPUSCULAR HEMOGLOBIN 28.8 pg (27.0-33.4); MEAN CORPUSCULAR HGB CONC 34.7 g/dL (32.0-36.0); MEAN CORPUSCULAR VOLUME 83 fl (80-97); MONOCYTES % (AUTO) 7.5 % (3-13); RED BLOOD COUNT 4.32 10^6/uL (3.72-5.28); RED CELL DISTRIBUTION WIDTH 13.9 % (11.5-14.0); SEGMENTED NEUTROPHILS % (AUTO) 70.7 % (42-78); WHITE BLOOD COUNT 4.9 10^3/uL (4.0-10.5)
[2016-11-03 12:04] LABS: ALANINE AMINOTRANSFERASE 20 U/L (9-52); ALBUMIN 4.1 g/dL (3.5-5.0); ALKALINE PHOSPHATASE 66 U/L (38-126); ANION GAP 10 (5-19); ASPARTATE AMINO TRANSFERASE 16 U/L (14-36); BILIRUBIN,DIRECT 0.3 mg/dL (0.0-0.4); BILIRUBIN,TOTAL 0.4 mg/dL (0.2-1.3); BLOOD UREA NITROGEN 8 mg/dL (7-20); CALCIUM 9.2 mg/dL (8.4-10.2); CARBON DIOXIDE 24 mmol/L (22-30); CHLORIDE 104 mmol/L (98-107); CREATININE RESULT 0.59 mg/dL (0.52-1.25); GLUCOSE 85 mg/dL (75-110); POTASSIUM 4.1 mmol/L (3.6-5.0); SODIUM 138.1 mmol/L (137-145); TOTAL PROTEIN 7.1 g/dL (6.3-8.2)
[2016-11-03] MEDS ORDERED: NORMAL SALINE 1000 ML 1,000 ML IV ONE (12:04)
--- NOTE | 2016-11-03 12:11 | RADIOLOGY REPORT (SQ) ---
EXAM DESCRIPTION: U/S XL9MDRI TRNABD 1GES W/ODOP COMPLETED DATE/TIME: 11/03/2016 11:58 am REASON FOR STUDY: reports approx 12 weeks preg: cramping COMPARISON: None. TECHNIQUE: Transabdominal static and realtime grayscale images acquired of the pelvis. Additional se lected spectral and color Doppler images recorded. All images stored on PACs. bHCG: Not available. LIMITATIONS: None. FINDINGS: FETUS: Living intrauterine . EGA: 9 weeks 5 days LUBA: 06/03/2017 FHR: 171 beats per minute. SUBCHORIONIC BLEED: No SIZE OF BLEED: Not applicable. UTERUS: 10.4 x 8.3 x 5.9 cm. No masses. No anomalies. CERVICAL LENGTH: 3.5 cm. Closed. RIGHT ADNEXA: Normal ovary with normal vascular flow. 2.6 x 2.4 x 2 cm. No adnexal free fluid. No adnexal masses. LEFT ADNEXA: 3.4 x 2.8 x 3.2 cm. There is a 2.5 x 2.2 x 2.7 cm cyst. No adnexal free fluid. No adnexal masses. FREE FLUID: None. OTHER: No other significant finding. IMPRESSION: Live intrauterine gestation of 9 weeks 5 days with an estimated date of delivery of 06/03. Trimester of : First - 0 to 13 weeks. TECHNICAL DOCUMENTATION: JOB ID: [id number] [email or web address]-[email or web address]- All Rights Reserved
--- NOTE | 2016-11-03 13:08 | ER Document Report ---
ED General - General Chief Complaint: Abdominal Cramping Stated Complaint: WEAKNESS Time Seen by Provider: 11/03/16 11:20 Mode of Arrival: Ambulatory TRAVEL OUTSIDE OF THE [place] IN LAST 30 DAYS: No - HPI Patient complains to provider of: Abdominal cramping nausea vomiting dehydration Notes: Patient is a coming in today for abdominal cramping. Patient is approximate 12 weeks . Patient states was evaluated at the [facility] came to the ER for dehydration. Patient states take Zofran for nausea however has a history of migraines states chronic migraine ongoing for the last few days. Patient states similar to her headaches in the past patient states no relief of her nausea vomiting with Zofran denies any fevers chills diarrhea. Patient denies any recent travel or trauma denies any vaginal bleeding or spotting. - Related Data Allergies/Adverse Reactions: No Known Allergies Allergy (Verified 11/03/16 11:07) Home Medications: Current Home Medications Pediatric Multivit Comb No.42 [Flintstones] 1 tab PO DAILY 11/03/16 [History] Past Medical History - General Information source: Patient - Social History Smoking Status: Never Smoker Chew tobacco use (# tins/day): No Frequency of alcohol use: None Drug Abuse: None Family History: Reviewed & Not Pertinent - Past Medical History Cardiac Medical History: Denies: Hx Coronary Artery Disease, Hx Heart Attack, Hx Hypertension Pulmonary Medical History: Denies: Hx Asthma, Hx Bronchitis, Hx COPD, Hx Pneumonia Neurological Medical History: Denies: Hx Cerebrovascular Accident, Hx Seizures Renal/ Medical History: Reports: Hx Ovarian Cysts. Denies: Hx Peritoneal Dialysis Musculoskeltal Medical History: Denies Hx Arthritis Past Surgical History: Reports: Hx Abdominal Surgery - hernia repair, Hx Gynecologic Surgery - DNC's, Hx Orthopedic Surgery - Left knee, Right shoulder - Immunizations Hx Diphtheria, Pertussis, Tetanus Vaccination: Yes Review of Systems - Review of Systems Constitutional: No symptoms reported EENT: No symptoms reported Cardiovascular: No symptoms reported Respiratory: No symptoms reported Gastrointestinal: Abdominal pain - Cramps Genitourinary: No symptoms reported Female Genitourinary: No symptoms reported Musculoskeletal: No symptoms reported Skin: No symptoms reported Hematologic/Lymphatic: No symptoms reported Neurological/Psychological: No symptoms reported -: Yes All other systems reviewed and negative Physical Exam - Vital signs Vitals: Temp Pulse Resp BP Pulse Ox 98.8 F 84 18 108/69 99 11/03/16 11:07 11/03/16 11:07 11/03/16 11:07 11/03/16 11:07 11/03/16 11:07 Interpretation: Normal - General General appearance: Appears well, Alert - HEENT Head: Normocephalic, Atraumatic Eyes: Normal Pupils: PERRL - Respiratory Respiratory status: No respiratory distress Chest status: Nontender Breath sounds: Normal Chest palpation: Normal - Cardiovascular Rhythm: Regular Heart sounds: Normal auscultation Murmur: No - Abdominal Inspection: Normal Distension: No distension Bowel sounds: Normal Tenderness: Nontender Organomegaly: No organomegaly - Back Back: Normal, Nontender - Extremities General upper extremity: Normal inspection, Nontender, Normal color, Normal ROM , Normal temperature General lower extremity: Normal inspection, Nontender, Normal color, Normal ROM , Normal temperature, Normal weight bearing. No: Becky's sign - Neurological Neuro grossly intact: Yes Cognition: Normal Orientation: AAOx4 [place] Coma Scale Eye Opening: Spontaneous [place] Coma Scale Verbal: Oriented [place] Coma Scale Motor: Obeys Commands [place] Coma Scale Total: 15 Speech: Normal Motor strength normal: LUE, RUE, LLE, RLE Sensory: Normal - Psychological Associated symptoms: Normal affect, Normal mood - Skin Skin Temperature: Warm Skin Moisture: Dry Skin Color: Normal Course - Re-evaluation Re-evalutation: 11/03/16 13:08 Patient coming in for dehydration. Lab work and ultrasound shows no critical pathology. Currently waiting on urinalysis more likely will display home 11/03/16 14:17 Discussed with [facility]. No ketones no signs of infection patient will be discharged home - Vital Signs Vital signs: Temp Pulse Resp BP Pulse Ox 98.8 F 84 18 108/69 99 11/03/16 11:07 11/03/16 11:07 11/03/16 11:07 11/03/16 11:07 11/03/16 11:07 - Laboratory Result Diagrams: 11/03/16 11:30 11/03/16 11:30 Laboratory results interpreted by me: 11/03/16 11/03/16 11/03/16 11:30 11:30 13:20 Hct 35.9 L Beta HCG, Quant 85130.00 H Ur Leukocyte Esterase TRACE H Discharge - Discharge Clinical Impression: Nausea/vomiting in Condition: Good Disposition: HOME, SELF-CARE Instructions: ([facility]), Vomiting ([facility]) Additional Instructions: You have been seen for vomiting during . You should continue to drink plenty of water and consider taking a solution such as Pedialyte if your having difficulty eating food. Please return if you become unable to drink any fluids for more than 12 hours, urinate less than twice a day, pass out, or have any other symptoms that are concerning to you. For nausea and vomiting during I recomment: Start with 10-12.5 mg of pyridoxine (vitamin B6) three times a day for 2 days. If not fully effective, Increase to 12.5 mg of pyridoxine four times a day for 2 days. If not fully effective, Increase to 25 mg of pyridoxine three times a day for 2 days. If not fully effective, Continue 25 mg pyridoxine 3 times a day, and add 12.5 mg of doxylamine before bedtime each day for 2 days. If not fully effective, Continue 25 mg pyridoxine 3 times a day, and take 12.5 mg of doxylamine twice a day. If not fully effective, Continue 25 mg pyridoxine 3 times a day, and take 12.5 mg of doxylamine three times a day. If not fully effective, Continue 25 mg pyridoxine 3 times a day, and 12.5 mg of doxylamine 3 times a day , while adding Emetrol, one to two tablespoons (15-30 cc) taken once or twice a day as needed. (Emetrol is an [id number] mixture of sugar syrups and phosphoric acid [phosphorylated carbohydrate solution]) that acts by soothing the actual wall of the gastrointestinal tract). If not fully effective, Consult with your doctor. Do not take Reglan or Phenergan together. Prescriptions: Metoclopramide HCl [Reglan] 5 mg PO Q6 #30 tablet Promethazine HCl [Phenergan] 25 mg RC Q6 #10 supp.rect Forms: Return to Work
[2016-11-03] MEDS ORDERED: METOCLOPRAMIDE HCL INJ/PF 10 MG/2 ML SDV IV ONE (13:18)
[2016-11-03] MEDS ORDERED: DIPHENHYDRAMINE HCL 50 MG/ML VIAL IV ONE (13:18)
[2016-11-03 13:52] LABS: APPEARANCE,URINE SLIGHTLY-CLOUDY; BILIRUBIN,URINE NEGATIVE (NEGATIVE); GLUCOSE, URINE NEGATIVE (NEGATIVE); KETONES,URINE NEGATIVE (NEGATIVE); LEUKOCYTE ESTERASE,URINE TRACE (NEGATIVE); NITRITE,URINE NEGATIVE (NEGATIVE); PROTEIN,URINE NEGATIVE (NEGATIVE); URINE SPECIFIC GRAVITY 1.018; UROBILINOGEN,URINE NEGATIVE mg/dL (<2.0)
[2016-11-03 14:40] VITALS: BP 102/54
== END 2016-11-03 14:41 | disposition home or self-care (01) ==
LOC: ER 10:53
DX: R11.2 Nausea with vomiting, unspecified (principal); R10.9 Unspecified abdominal pain; R53.1 Weakness; E86.0 Dehydration; Z3A.12 12 weeks gestation of pregnancy
CPT/HCPCS: 99285; 96361; 96374; 96375; 36415; 84702; 85025; 80053; 81001; 76801; J1200; J2765; J7030

== ENCOUNTER 2017-04-15 23:34 | Outpatient (CLI) | payer BC, MEDICAID ==
[2017-04-16 00:46] LABS: APPEARANCE,URINE SLIGHTLY-CLOUDY; BILIRUBIN,URINE NEGATIVE (NEGATIVE); CALCIUM OXALATE CRYSTALS,URINE MODERATE /HPF; COLOR,URINE YELLOW; GLUCOSE, URINE NEGATIVE (NEGATIVE); KETONES,URINE NEGATIVE (NEGATIVE); LEUKOCYTE ESTERASE,URINE NEGATIVE (NEGATIVE); NITRITE,URINE NEGATIVE (NEGATIVE); PROTEIN,URINE 30 mg/dL (NEGATIVE); URINE SPECIFIC GRAVITY 1.032
[2017-04-16] MEDS ORDERED: ACETAMINOPHEN 325 MG TABLET PO ONE (00:53)
[2017-04-16 00:55] LABS: URINE AMPHETAMINES SCREEN NEGATIVE; URINE BARBITURATES SCREEN NEGATIVE; URINE BENZODIAZEPINES SCREEN NEGATIVE; URINE COCAINE SCREEN NEGATIVE; URINE MARIJUANA (THC) SCREEN NEGATIVE; URINE METHADONE SCREEN NEGATIVE; URINE PHENCYCLIDINE SCREEN NEGATIVE
[2017-04-16] MEDS ORDERED: ACETAMINOPHEN 325 MG TABLET ONE (01:04)
== END 2017-04-16 01:07 | disposition home or self-care (01) ==
LOC: LC 23:34
PROVIDERS: ATTEND Obstetrics & Gynecology
PROC: 4A1HXCZ Monitoring of Products of Conception, Cardiac Rate, External Approach (ICD-10-PCS; principal; 2017-04-15)
DX: O47.03 False labor before 37 completed weeks of gestation, third trimester (principal); Z3A.33 33 weeks gestation of pregnancy
CPT/HCPCS: 59025; 80307; 81001

== ENCOUNTER 2017-04-23 08:25 | Outpatient (CLI) | payer BC ==
[2017-04-23] MEDS ORDERED: HYDROXYZINE PAMOATE 50 MG CAPSULE PO PRN ×2 (08:36→09:10)
[2017-04-23] MEDS ORDERED: RINGERS SOLUTION,LACTATED 2,000 ML IV ONE (08:36)
[2017-04-23] MEDS ORDERED: ONDANSETRON HCL INJ/PF 4 MG/2 ML SDV IV ONE (08:36)
[2017-04-23] MEDS ORDERED: ONDANSETRON HCL INJ/PF 4 MG/2 ML SDV ONE (09:14)
[2017-04-23 09:28] LABS: APPEARANCE,URINE CLEAR; BILIRUBIN,URINE NEGATIVE (NEGATIVE); COLOR,URINE YELLOW; GLUCOSE, URINE NEGATIVE (NEGATIVE); KETONES,URINE NEGATIVE (NEGATIVE); LEUKOCYTE ESTERASE,URINE NEGATIVE (NEGATIVE); NITRITE,URINE NEGATIVE (NEGATIVE); PROTEIN,URINE NEGATIVE (NEGATIVE); URINE SPECIFIC GRAVITY 1.014; UROBILINOGEN,URINE NEGATIVE mg/dL (<2.0)
[2017-04-23 09:42] LABS: URINE AMPHETAMINES SCREEN NEGATIVE; URINE BARBITURATES SCREEN NEGATIVE; URINE BENZODIAZEPINES SCREEN NEGATIVE; URINE COCAINE SCREEN NEGATIVE; URINE MARIJUANA (THC) SCREEN NEGATIVE; URINE METHADONE SCREEN NEGATIVE; URINE PHENCYCLIDINE SCREEN NEGATIVE
[2017-04-23] MEDS ORDERED: HYDROXYZINE PAMOATE 50 MG CAPSULE ONE (10:09)
--- NOTE | 2017-04-23 10:45 | Non Stress Test Report ---
Non Stress Test Datetime Report Generated by CPN: 04/23/2017 10:44 DEMOGRAPHIC EGA NST: 34.2 EGA NST: 33.2 INDICATION Indication for Study: Ordered by Provider Indication for Study: Ordered by Provider VITAL SIGNS Temperature - NST: 97.6 Pulse - NST: 90 RESP - NST: 18 NBPSYS NST: 123 NBPDIA NST: 66 URINE RESULTS Urine Protein, NST: Positive Urine Ketones - NST: Negative Urine Glucose - NST: Negative Urine Blood - NST: Negative MONITORING Monitor Explained: Monitor Explained; Test Explained; Patient Verbalized Understanding Monitor Explained: Monitor Explained; Test Explained; Patient Verbalized Understanding Time on Monitor: 04/23/2017 09:15 Time on Monitor: 04/16/2017 00:11 Time off Monitor: 04/23/2017 09:50 Time off Monitor: 04/16/2017 00:51 NST Duration: 35 NST Duration: 40 NST INTERVENTIONS NST Interventions: PO Hydration; IV Fluids; Reposition Patient NST Interventions: PO Hydration Physician Notified NST: Dr. Arnold Physician Notified NST: Barcenas BABY A: [id number] BABY A Movement : Present Movement : Present Contraction Frequency : Irregular Contraction Frequency : None FHR Baseline : 125 FHR Baseline : 125 Accelerations : 15X15 Accelerations : 15X15 Decelerations : None Decelerations : None Variability : Moderate 6-25bpm Variability : Moderate 6-25bpm NST Review: Meets Criteria for Reactive NST NST Review: Meets Criteria for Reactive NST NST Review and Verified By : Patti Pantoja RN NST Review and Verified By : Heron Witt RN NST Results: Reactive NST Results: Reactive NST REPORT Report Trigger: Send Report
== END 2017-04-23 10:41 | disposition home or self-care (01) ==
LOC: LC 08:25
PROVIDERS: ATTEND Student in an Organized Health Care Education/Training Program
PROC: 4A1HXCZ Monitoring of Products of Conception, Cardiac Rate, External Approach (ICD-10-PCS; principal; 2017-04-23)
DX: O21.2 Late vomiting of pregnancy (principal); Z3A.34 34 weeks gestation of pregnancy
CPT/HCPCS: 59025; 81001; 80307; J2405

== ENCOUNTER 2017-05-12 23:42 | Outpatient (CLI) | payer BC ==
[2017-05-13 00:27] LABS: AMNISURE (ROM) NEGATIVE (NEGATIVE)
[2017-05-13 00:28] LABS: APPEARANCE,URINE SLIGHTLY-CLOUDY; BILIRUBIN,URINE NEGATIVE (NEGATIVE); COLOR,URINE YELLOW; GLUCOSE, URINE NEGATIVE (NEGATIVE); KETONES,URINE TRACE mg/dL (NEGATIVE); LEUKOCYTE ESTERASE,URINE SMALL (NEGATIVE); NITRITE,URINE NEGATIVE (NEGATIVE); PROTEIN,URINE NEGATIVE (NEGATIVE); URINE SPECIFIC GRAVITY 1.019; UROBILINOGEN,URINE NEGATIVE mg/dL (<2.0)
[2017-05-13 00:47] LABS: URINE AMPHETAMINES SCREEN NEGATIVE; URINE BARBITURATES SCREEN NEGATIVE; URINE BENZODIAZEPINES SCREEN NEGATIVE; URINE COCAINE SCREEN NEGATIVE; URINE MARIJUANA (THC) SCREEN NEGATIVE; URINE METHADONE SCREEN NEGATIVE; URINE PHENCYCLIDINE SCREEN NEGATIVE
--- NOTE | 2017-05-13 00:49 | Non Stress Test Report ---
Non Stress Test Datetime Report Generated by CPN: 05/13/2017 00:48 DEMOGRAPHIC EGA NST: 37.1 INDICATION Indication for Study: Premature Rupture of Membranes; Other Indication for Study (NST) Other: LC URINE RESULTS Urine Protein, NST: Negative Urine Ketones - NST: Positive Urine Glucose - NST: Negative Urine Blood - NST: Negative MONITORING Monitor Explained: Monitor Explained; Test Explained; Patient Verbalized Understanding Time on Monitor: 05/13/2017 00:02 Time off Monitor: 05/13/2017 00:41 NST Duration: 39 NST INTERVENTIONS NST Interventions: PO Hydration BABY A: [id number] BABY A Movement : Present Contraction Frequency : 3-4 FHR Baseline : 125 Accelerations : 15X15 Decelerations : None Variability : Moderate 6-25bpm NST Review: Meets Criteria for Reactive NST NST Review and Verified By : Heron Witt RN NST Results: Reactive NST REPORT Report Trigger: Send Report
== END 2017-05-13 01:40 | disposition home or self-care (01) ==
LOC: LC 23:42
PROVIDERS: ATTEND Obstetrics & Gynecology
DX: O47.1 False labor at or after 37 completed weeks of gestation (principal); O42.92 Full-term premature rupture of membranes, unspecified as to length of time between rupture and onset of labor; Z3A.37 37 weeks gestation of pregnancy
CPT/HCPCS: 59025; 80307; 81005; 84112

== ENCOUNTER 2017-05-15 09:13 | Observation (INO) | payer BC ==
[2017-05-15 09:58] LABS: APPEARANCE,URINE CLEAR; BILIRUBIN,URINE NEGATIVE (NEGATIVE); COLOR,URINE STRAW; GLUCOSE, URINE NEGATIVE (NEGATIVE); KETONES,URINE NEGATIVE (NEGATIVE); LEUKOCYTE ESTERASE,URINE NEGATIVE (NEGATIVE); NITRITE,URINE NEGATIVE (NEGATIVE); PROTEIN,URINE NEGATIVE (NEGATIVE); URINE SPECIFIC GRAVITY 1.004; UROBILINOGEN,URINE NEGATIVE mg/dL (<2.0)
[2017-05-15 10:24] LABS: URINE AMPHETAMINES SCREEN NEGATIVE; URINE BARBITURATES SCREEN NEGATIVE; URINE BENZODIAZEPINES SCREEN NEGATIVE; URINE COCAINE SCREEN NEGATIVE; URINE MARIJUANA (THC) SCREEN NEGATIVE; URINE METHADONE SCREEN NEGATIVE; URINE PHENCYCLIDINE SCREEN NEGATIVE
[2017-05-15 11:07] LABS: INTERNATIONAL RATION (INR) 0.84; PROTHROMBIN TIME 12.2 SEC (11.4-15.4)
[2017-05-15 11:08] LABS: PARTIAL THROMBOPLASTIN TIME 26.5 SEC (23.5-35.8)
[2017-05-15 11:18] LABS: ABSOLUTE LYMPHOCYTES (AUTO) 0.7 10^3/uL (0.5-4.7); ABSOLUTE MONOCYTES (AUTO) 0.4 10^3/uL (0.1-1.4); BASOPHILS % (AUTO) 0.5 % (0-2); EOSINOPHILS % (AUTO) 0.3 % (0-6); HEMATOCRIT 32.5 % (36.0-47.0); HEMOGLOBIN 10.9 g/dL (12.0-15.5); LYMPHOCYTES % (AUTO) 16.4 % (13-45); MEAN CORPUSCULAR HEMOGLOBIN 26.4 pg (27.0-33.4); MEAN CORPUSCULAR HGB CONC 33.6 g/dL (32.0-36.0); MEAN CORPUSCULAR VOLUME 79 fl (80-97); MONOCYTES % (AUTO) 10.1 % (3-13); PLATELET COUNT 148 10^3/uL (150-450); RED BLOOD COUNT 4.14 10^6/uL (3.72-5.28); SEGMENTED NEUTROPHILS % (AUTO) 72.7 % (42-78); TOTAL CELLS COUNTED % (AUTO) 100 %; WHITE BLOOD COUNT 4.2 10^3/uL (4.0-10.5)
[2017-05-15] MEDS ORDERED: RINGERS SOLUTION,LACTATED 1,000 ML IV PRN (13:15)
[2017-05-15] MEDS ORDERED: RINGERS SOLUTION,LACTATED 1,000 ML IV ONE (13:15)
--- NOTE | 2017-05-15 13:35 | Admission Physical ---
Datetime Report Generated by CPN: 05/15/2017 13:35 CURRENT ADMISSION Chief Complaint: Sent from OB Office for Evaluation and Treatment - Please Specify Chief Complaint Other: Abdominal pain, US with placental reddy versus placental abruption Indication for Induction: Not Applicable Indication for Induction: Term, Intrauterine ; No Active Labor; Intact Membranes; Observation/Evaluation Admit Plan: Admit to Unit; Observation/Evaluation ALLERGIES Medication Allergies: No Medication Allergies: No Known Allergies (05/13/2017) Latex: No Latex Allergies Food Allergies: None Environmental Allergies: None OBSTETRICAL HISTORY EDC: 06/02/2017 00:00 : 4 Para: 1 Term: 1 : 0 SAB: 2 IAB: 0 Ectopic: 0 Livin Cesareans: 0 VBACs: 0 Multiple Births: 0 Gestational Diabetes: No Rh Sensitization: No Incompetent Cervix: No SUNG: No Infertility: No ART Treatment: No Uterine Anomaly: No IUGR: No Hx Previous C/S: No Macrosomia: No Hx Loss/Stillborn: No PIH: No Hx : No Placenta Previa/Abruption: No Depression/PP Depression: Yes PTL/PROM: No Post Hemorrhage: No Obstetrical History Comments: G1: 2014 5 weeks SAB G2: 08/2015 babygirl 8 lbs 8 oz hx PPD G3: 2016 SAB SEE RECORDS Alcohol: No Marijuana : No Cocaine: No Other Illicit Drugs: No Cigarettes: Never Smoker. [id number] MEDICAL HISTORY Diabetes: No Blood Transfusion: No Pulmonary Disease (Asthma, TB): No Breast Disease: No Hypertension: No Stock Buyer Surgery: No Heart Disease: No Hosp/Surgery: No Autoimmune Disorder: No Anesthetic Complications: No Kidney Disease: No Abnormal Pap Smear: No Neuro/Epilepsy: No Psychiatric Disorders: No Other Medical Diseases: No Hepatitis/Liver Disease: No Significant Family History: No Varicosities/Phlebitis: No Trauma/Violence : No Thyroid Dysfunction: No Medical History Comments: surgical hx: L knee, R shoulder hx: PPD INFECTIOUS HISTORY Gonorrhea: No Genital Herpes: No Chlamydia: No Tuberculosis: No Syphilis: No Hepatitis: No HIV/AIDS Exposure: No Rash or Viral Illness: No HPV: No PHYSICAL EXAM General: Normal HEENT: Normal Neurologic: Normal Thyroid: Deferred Heart: Normal Lungs: Normal Breast: Deferred Back: Normal Abdomen: Normal Genitourinary Exam: Normal Extremities: Normal DTRs: Normal Pelvic Type: Adequate Vital Signs: Reviewed VAGINAL EXAM Dilatation: 1 Effacement: 40 Station: -3 Contraction Comments: q 3-5 MEMBRANES Membranes: Intact FETUS A EGA: 37.3 Monitoring: External US FHR- Baseline: 130 Variability: Moderate 6-25bpm Accelerations: 15X15 Decelerations: None Presentation: Vertex Admit Comment: 22yo [id number] at 37+3ega presents from the office for abdominal pain. US done in the office with placental reddy versus poss abruption - approx 2cm area. Pt reports right sided abd pain and pelvic pressure. Labs to eval Abruption unremarkable. Exam with site of most pain - on palpation noted parts pushing out at that site. mild pain on palpation but improved with moving part out of the way. Will admit for observation. PLANS FOR LABOR AND DELIVERY Labor and Delivery: None Pain Management: Epidural Feeding Preference: Breast Benefit of Breast Feed Discussed: Yes Circumcision: Yes INFORMED CONSENT Informed Consent Obtained: Vaginal Delivery; Risks, Benefits and Alternatives Discussed Signature: with User ID: [email or web address]
[2017-05-15] MEDS ORDERED: ACETAMINOPHEN 325 MG TABLET PO ONE (15:33)
[2017-05-15] MEDS ORDERED: ACETAMINOPHEN 325 MG TABLET ONE (15:35)
[2017-05-16 07:31] LABS: HEMOGLOBIN 9.9 g/dL (12.0-15.5); MEAN CORPUSCULAR HEMOGLOBIN 26.2 pg (27.0-33.4); MEAN CORPUSCULAR HGB CONC 33.2 g/dL (32.0-36.0); MEAN CORPUSCULAR VOLUME 79 fl (80-97); PLATELET COUNT 119 10^3/uL (150-450); RED BLOOD COUNT 3.79 10^6/uL (3.72-5.28); RED CELL DISTRIBUTION WIDTH 14.1 % (11.5-14.0)
--- NOTE | 2017-05-16 08:02 | RADIOLOGY REPORT (SQ) ---
EXAM DESCRIPTION: U/S OB LIMITED CLINICAL HISTORY: 22 years, Female, abd pain, reddy vs placental abruption, approx 2cm COMPARISON: None. TECHNIQUE: Transabdominal. LIMITATIONS: Targeted for request ventricle parameters. FINDINGS: 2 cm hypoechoic collection at the periphery of the placenta near its margin with the uterine wall with flow suggests a placental reddy; retroplacental abruption appears less likely. Consider continued surveillance as clinically warranted. Additional likely placental lakes. Vertex position. Cardiac activity: 141 bpm. Placenta location: Anterior IMPRESSION: Multiple likely placental lakes. Consider continued surveillance for increased sensitivity/specificity as clinically warranted.
[2017-05-16 08:11] LABS: INTERNATIONAL RATION (INR) 0.85; PARTIAL THROMBOPLASTIN TIME 27.2 SEC (23.5-35.8); PROTHROMBIN TIME 12.3 SEC (11.4-15.4)
[2017-05-16 08:20] LABS: ABSOLUTE LYMPHOCYTES# (MANUAL) 0.6 10^3/uL (0.5-4.7); ABSOLUTE MONOCYTES # (MANUAL) 0.3 10^3/uL (0.1-1.4); ABSOLUTE NEUTROPHILS# (MANUAL) 0.8 10^3/uL (1.7-8.2); BAND NEUTROPHILS % (MANUAL) 2 % (3-5); BASOPHILS % (MANUAL) 1 % (0-2); EOSINOPHILS % (MANUAL) 0 % (0-6); LYMPHOCYTES % (MANUAL) 35 % (13-45); MONOCYTES % (MANUAL) 18 % (3-13); SEGMENTED NEUTROPHILS % (MAN) 43 % (42-78); TOTAL CELLS COUNTED 100
[2017-05-16 08:21] LABS: ANISOCYTOSIS SLIGHT; PLATELET COMMENT DECREASED; TOXIC GRANULATION 1+
[2017-05-16 08:22] LABS: WHITE BLOOD COUNT 1.7 10^3/uL (4.0-10.5)
[2017-05-16 13:06] LABS: PATH REVIEW PATHOLOGIST REVIEWED
== END 2017-05-16 09:40 | disposition home or self-care (01) ==
LOC: LC 09:13 → LR 12:49
PROVIDERS: ADMIT Student in an Organized Health Care Education/Training Program; ATTEND Student in an Organized Health Care Education/Training Program
PROC: 4A1HXCZ Monitoring of Products of Conception, Cardiac Rate, External Approach (ICD-10-PCS; principal; 2017-05-15)
DX: O47.1 False labor at or after 37 completed weeks of gestation (principal); Z3A.37 37 weeks gestation of pregnancy
CPT/HCPCS: 59025; 86900; 86901; 36415 ×2; 86850; 85025 ×2; 85362 ×2; 85610 ×2; 85730 ×2; 81005; 86592; 80307; 76815; G0378 ×2; G0379

== ENCOUNTER 2017-05-23 10:26 | Outpatient (CLI) | payer BC ==
[2017-05-23] MEDS ORDERED: RINGERS SOLUTION,LACTATED 1,000 ML IV PRN (10:30)
[2017-05-23] MEDS ORDERED: RINGERS SOLUTION,LACTATED 1,000 ML IV ONE (10:30)
[2017-05-23] MEDS ORDERED: ONDANSETRON HCL INJ/PF 4 MG/2 ML SDV IV ONE (10:52)
== END 2017-05-23 11:29 | disposition home or self-care (01) ==
LOC: LC 10:26
PROVIDERS: ATTEND Obstetrics & Gynecology
PROC: 4A1HXCZ Monitoring of Products of Conception, Cardiac Rate, External Approach (ICD-10-PCS; principal; 2017-05-23)
DX: O21.2 Late vomiting of pregnancy (principal); Z3A.38 38 weeks gestation of pregnancy
CPT/HCPCS: 59025

== ENCOUNTER 2017-05-27 08:09 | Inpatient (IN) | payer BC ==
--- NOTE | 2017-05-27 08:44 | Admission Physical ---
Datetime Report Generated by CPN: 05/27/2017 08:44 CURRENT ADMISSION Hx Assessment: The History has been Reviewed and is Current Chief Complaint: Uterine Contractions; Suspected Ruptured Membranes Chief Complaint Other: Abdominal pain, US with placental reddy versus placental abruption Indication for Induction: Not Applicable Admit Impression : Term, Intrauterine ; Active Labor; Ruptured Membranes Admit Plan: Admit to Unit; Initiate Labor Augmentation Protocol ALLERGIES Medication Allergies: No Medication Allergies: No Known Allergies (05/23/2017) Latex: No Latex Allergies Food Allergies: None Environmental Allergies: None OBSTETRICAL HISTORY EDC: 06/02/2017 00:00 : 4 Para: 1 Term: 1 : 0 SAB: 2 IAB: 0 Ectopic: 0 Livin Cesareans: 0 VBACs: 0 Multiple Births: 0 Gestational Diabetes: No Rh Sensitization: No Incompetent Cervix: No SUNG: No Infertility: No ART Treatment: No Uterine Anomaly: No IUGR: No Hx Previous C/S: No Macrosomia: No Hx Loss/Stillborn: No PIH: No Hx : No Placenta Previa/Abruption: No Depression/PP Depression: Yes PTL/PROM: No Post Hemorrhage: No Obstetrical History Comments: G1: 2014 5 weeks SAB G2: 08/2015 babygirl 8 lbs 8 oz hx PPD G3: 2016 SAB SEE RECORDS Alcohol: No Marijuana : No Cocaine: No Other Illicit Drugs: No Cigarettes: Never Smoker. [id number] MEDICAL HISTORY Diabetes: No Blood Transfusion: No Pulmonary Disease (Asthma, TB): No Breast Disease: No Hypertension: No Signals Analyst Surgery: No Heart Disease: No Hosp/Surgery: No Autoimmune Disorder: No Anesthetic Complications: No Kidney Disease: No Abnormal Pap Smear: No Neuro/Epilepsy: No Psychiatric Disorders: No Other Medical Diseases: No Hepatitis/Liver Disease: No Significant Family History: No Varicosities/Phlebitis: No Trauma/Violence : No Thyroid Dysfunction: No Medical History Comments: surgical hx: L knee, R shoulder hx: PPD INFECTIOUS HISTORY Gonorrhea: No Genital Herpes: No Chlamydia: No Tuberculosis: No Syphilis: No Hepatitis: No HIV/AIDS Exposure: No Rash or Viral Illness: No HPV: No PHYSICAL EXAM General: Normal HEENT: Normal Neurologic: Normal Thyroid: Deferred Heart: Normal Lungs: Normal Breast: Normal Back: Normal Abdomen: Normal Genitourinary Exam: Normal Extremities: Normal DTRs: Normal Pelvic Type: Adequate Physical Exam Comments: pelvis proven 8 lbs 8 oz Vital Signs: Reviewed VAGINAL EXAM Dilatation: 4 Effacement: 80 Station: -3 Contraction Comments: 4-5 MEMBRANES Membranes: Ruptured Amniotic Fluid Color: Clear FETUS A EGA: 39.1 Monitoring: External US FHR- Baseline: 155 Variability: Moderate 6-25bpm Accelerations: 15X15 Decelerations: None FHR Category: Category I Estimated Weight (gm): 400 Presentation: Vertex Admit Comment: Feels like her water broke at 0600, clear, ctx 2-5 min apart. Uncomplicated hx depression. GBS negative Admit to L _ D may have epidural, prn start pitocin PLANS FOR LABOR AND DELIVERY Labor and Delivery: None Pain Management: Epidural Feeding Preference: Breast Benefit of Breast Feed Discussed: Yes Circumcision: Yes INFORMED CONSENT Informed Consent Obtained: Vaginal Delivery; Risks, Benefits and Alternatives Discussed Assignment: Duane Merida MD Signature: with User ID: Jessica, Addendum/Amendment: dr. shafer : with User ID: Jessica, Addendum/Amendment: dr. shafer
[2017-05-27] MEDS ORDERED: OXYTOCIN/NORMAL SALINE 20 UNIT/1,000 ML RTUINJ IV PRN ×3 (08:49→15:04)
[2017-05-27] MEDS ORDERED: OXYTOCIN/NORMAL SALINE 0 UNIT/0 ML RTUINJ ONE (08:59)
[2017-05-27] MEDS ORDERED: LIDOCAINE 1% INJ-PF (10 MG/ML) 30 ML SDV ONE (08:59)
[2017-05-27] MEDS ORDERED: MISOPROSTOL 0.2 MG TABLET ONE (08:59)
[2017-05-27] MEDS ORDERED: FENTANYL/BUPIVACAINE/NS/PF 200 MCG/100 ML RTUINJ EPI ONE (09:00)
[2017-05-27] MEDS ORDERED: BUPIVACAINE HCL 0.25 % INJ/PF (2.5 MG/1 ML) 30 ML VIAL ONE (09:00)
[2017-05-27] MEDS ORDERED: EPHEDRINE SULFATE INJ 50 MG/1 ML AMPULE ONE (09:00)
[2017-05-27] MEDS ORDERED: OXYTOCIN/NORMAL SALINE 20 UNIT/1,000 ML RTUINJ ONE (09:00)
[2017-05-27] MEDS ORDERED: EPHEDRINE SULFATE INJ 50 MG/1 ML AMPULE IV PRN (09:04)
[2017-05-27] MEDS ORDERED: FENTANYL/BUPIVACAINE/NS/PF 200 MCG/100 ML RTUINJ EPI PRN (09:04)
[2017-05-27] MEDS ORDERED: BENZOIN/ALOE VERA/STORAX/TOLU TINCTURE 60 ML TP PRN (09:04)
[2017-05-27] MEDS ORDERED: BUPIVACAINE HCL 0.25 % INJ/PF (2.5 MG/1 ML) 30 ML VIAL INFIL PRN (09:04)
[2017-05-27] MEDS ORDERED: LIDOCAINE 1% INJ-PF (10 MG/ML) 30 ML SDV INJ PRN (09:13)
[2017-05-27] MEDS ORDERED: MISOPROSTOL 0.2 MG TABLET PR PRN (09:13)
[2017-05-27 10:00] LABS: ABSOLUTE EOSINOPHILS # (AUTO) 0.1 10^3/uL (0.0-0.6); ABSOLUTE LYMPHOCYTES (AUTO) 1.5 10^3/uL (0.5-4.7); ABSOLUTE MONOCYTES (AUTO) 0.7 10^3/uL (0.1-1.4); ABSOLUTE NEUT (AUTO) 8.4 10^3/uL (1.7-8.2); BASOPHILS % (AUTO) 0.3 % (0-2); EOSINOPHILS % (AUTO) 0.5 % (0-6); HEMATOCRIT 34.6 % (36.0-47.0); HEMOGLOBIN 11.2 g/dL (12.0-15.5); LYMPHOCYTES % (AUTO) 13.9 % (13-45); MEAN CORPUSCULAR HEMOGLOBIN 25.7 pg (27.0-33.4); MEAN CORPUSCULAR HGB CONC 32.5 g/dL (32.0-36.0); MEAN CORPUSCULAR VOLUME 79 fl (80-97); MONOCYTES % (AUTO) 6.7 % (3-13); PLATELET COUNT 209 10^3/uL (150-450); RED BLOOD COUNT 4.38 10^6/uL (3.72-5.28); SEGMENTED NEUTROPHILS % (AUTO) 78.6 % (42-78); TOTAL CELLS COUNTED % (AUTO) 100 %; WHITE BLOOD COUNT 10.7 10^3/uL (4.0-10.5)
[2017-05-27 10:15] LABS: APPEARANCE,URINE SLIGHTLY-CLOUDY; BILIRUBIN,URINE NEGATIVE (NEGATIVE); COLOR,URINE YELLOW; GLUCOSE, URINE NEGATIVE (NEGATIVE); KETONES,URINE NEGATIVE (NEGATIVE); LEUKOCYTE ESTERASE,URINE NEGATIVE (NEGATIVE); NITRITE,URINE NEGATIVE (NEGATIVE); PROTEIN,URINE NEGATIVE (NEGATIVE); URINE SPECIFIC GRAVITY 1.019; UROBILINOGEN,URINE NEGATIVE mg/dL (<2.0)
[2017-05-27 10:41] LABS: URINE AMPHETAMINES SCREEN NEGATIVE; URINE BARBITURATES SCREEN NEGATIVE; URINE BENZODIAZEPINES SCREEN NEGATIVE; URINE COCAINE SCREEN NEGATIVE; URINE MARIJUANA (THC) SCREEN NEGATIVE; URINE METHADONE SCREEN NEGATIVE; URINE PHENCYCLIDINE SCREEN NEGATIVE
[2017-05-27] MEDS ORDERED: BENZOCAINE/MENTHOL AEROSOL SPRAY 56 ML TOP PRN (15:04)
[2017-05-27] MEDS ORDERED: DIBUCAINE 1% OINTMENT 28 GM TP PRN (15:04)
[2017-05-27] MEDS ORDERED: DIPH/PERTUSS(ACELL)/TETANUS VAC/PF 0.5 ML SYR (>=10YO) IM PRN (15:04)
[2017-05-27] MEDS ORDERED: ZOLPIDEM TARTRATE 5 MG TABLET PO PRN (15:04)
[2017-05-27] MEDS ORDERED: ACETAMINOPHEN WITH CODEINE #3 TABLET PO PRN (15:04)
[2017-05-27] MEDS ORDERED: MEASLES,MUMPS&RUBELLA VACC/PF 0.5 ML VIAL SUBCUT PRN (15:04)
--- NOTE | 2017-05-27 15:11 | Warning Signs in Babies ---
VOD Warning Signs Datetime Report Generated by [facility]: 05/27/2017 15:11 VOD#608 -Warning Signs in Babies: Viewed with Parent(s)/Family (04/15/2017 23:35:Kymberly Pantoja RN)
--- NOTE | 2017-05-27 15:13 | Warning Signs in Babies ---
VOD Warning Signs Datetime Report Generated by [facility]: 05/27/2017 15:12 VOD#608 -Warning Signs in Babies: Viewed with Parent(s)/Family (05/27/2017 15:11:Kymberly Pantoja RN)
--- NOTE | 2017-05-27 16:22 | Delivery Summary ---
Del Sum A-C Datetime Report Generated by CPN: 05/27/2017 16:21 DELIVERY PERSONNEL DELIVERY PERSONNEL: [id number] Delivery Doctor:: Domi Melgoza CNM Nurse Dog Daycare Provider Certified:: Domi Melgoza CNM Labor and Delivery Nurse:: KOFI Bryant Nursery Nurse:: KOFI Harris Director Blood Bank/IRRIGATOR GRAVITY FLOW: Jorge Luis Hagan, AUTOMOBILE APPRAISER MATERNAL INFORMATION Delivery Anesthesia: Epidural Medications After Delivery: Pitocin Bolus-Please Comment Estimated Blood Loss (ml): 450 Maternal Complications: None Provider Comments: pt c/100/+1, pushed well with ctx, head, shoulders and body delivered without difficulty, infant with spontaneous cry and respirations to maternal abodmen skin to skin, cord clamped X2 after 2 min delay, cut free by pts . Spontaneous delivery of intact placenta via motley mechanism, appears intact 3 VC. Hemostasis acheived with external fundal massage and IV pitocin, vagina and perineum inspected, no lacerations noted, mother and baby in stable condition, routine pp care. LABOR SUMMARY EDC: 06/02/2017 00:00 No. Babies in Womb: 1 Attempted: No Labor Anesthesia: Epidural LABOR INFORMATION Reason for Induction: Not Applicable Onset of Labor: 05/27/2017 11:30 Complete Dilatation: 05/27/2017 14:28 Oxytocin: Augmentation Group B Beta Strep: negative Antibiotics # of Doses: 0 Steroids Given: None Reason Steroids Not Administered: Not Applicable MEMBRANES Membranes Rupture Method: Spontaneous Rupture of Membranes: 05/27/2017 06:00 Length of Rupture (hr): 8.80 Amniotic Fluid Color: Clear Amniotic Fluid Amount: Small Amniotic Fluid Odor: Normal STAGES OF LABOR Stage 1 hr: 2 Stage 1 min: 58 Stage 2 hr: 0 Stage 2 min: 20 Stage 3 hr: 0 Stage 3 min: -2 Total Time in Labor hr: 3 Total Time in Labor min: 16 VAGINAL DELIVERY Episiotomy: None Laceration #1: None Laceration Extension #1: N/A Laceration Repair: Not Applicable Sponge Count Correct: N/A Sharps Count Correct: N/A CSECTION DELIVERY Primary Indication: N/A Secondary Indication: N/A CSection Urgency: N/A CSection Incidence: N/A Labor: N/A Elective: N/A CSection Incision: N/A BABY A INFORMATION Delivery Date/Time: 05/27/2017 14:48 Method of Delivery: Vaginal Born in Route : No : N/A Forceps: N/A Vacuum Extraction: N/A Shoulder Dystocia : No PRESENTATION/POSITION BABY A Presentation: Cephalic Cephalic Presentation: Vertex Vertex Position: Left Occipital Anterior Breech Presentation: N/A PLACENTA INFORMATION BABY A Placenta Delivery Time : 05/27/2017 14:46 Placenta Method of Delivery: Spontaneous Placenta Status: Delivered SCORES BABY A Heart Rate 1 min: >100 bpm Resp Effort 1 min: Good Cry Reflex Irritability 1 min: Cough or Sneeze or Pulls Away Muscle Tone 1 min: Active Motion Color 1 min: Blue/Pale SCORE 1 MIN: 8 Heart Rate 5 min: >100 bpm Resp Effort 5 min: Good Cry Reflex Irritability 5 min: Cough or Sneeze or Pulls Away Muscle Tone 5 min: Active Motion Color 5 min: Body [place], Extremities Blue SCORE 5 MIN: 9 INFORMATION BABY A Gestational Age at Delivery: 39.1 Gestational Status: Full Term- 39- 40.6 Weeks Infant Outcome : Liveborn Infant Condition : Stable Infant Sex: Male IDENTIFICATION BABY A Infant Verification Date/Time: 05/27/2017 15:06 ID Band Number: [id number] Mother's Name Verified: Yes RN Verifying : A. Kit RN Additional Verifying Personnel: S. Camp RN WEIGHT/LENGTH BABY A Birthweight (gm): 4330 Weight (lb): 9 Weight (oz): 9 Infant Length (in): 22.50 Length (cm): 57.15 CORD INFORMATION BABY A No. Cord Vessels: 3 Nuchal Cord : N/A Cord Blood Taken: Yes-For Eval (Mom's Blood Type - or O+) Suction: None ASSESSMENT BABY A Infant Complications: None Physical Findings at Delivery: Within Normal Limits Infant Respirations: Appears Normal Skin to Skin: Yes Skin to Skin Time (min): 60 Infant Care By: A. Kit RN Transferred To: Remains with Mother BABY B INFORMATION : N/A SIGNATURES Assignment: Duane Merida MD Signature: with User ID: Jessica : with User ID: Jessica
[2017-05-27] MEDS ORDERED: FERROUS SULFATE 325 MG TABLET PO ONE (17:14)
[2017-05-27] MEDS ORDERED: DOCUSATE SODIUM 100 MG CAPSULE ONE (17:14)
[2017-05-27] MEDS: FERROUS SULFATE 325 MG TABLET PO SCH (17:21)
[2017-05-27] MEDS: DOCUSATE SODIUM 100 MG CAPSULE PO SCH (17:21)
[2017-05-27] MEDS: ACETAMINOPHEN WITH CODEINE #3 TABLET PO PRN (20:40)
[2017-05-27] MEDS ORDERED: MISOPROSTOL 0.2 MG TABLET PR ONE (22:00)
[2017-05-27] MEDS: IBUPROFEN 800 MG TABLET PO SCH (22:40)
[2017-05-28] MEDS: IBUPROFEN 800 MG TABLET PO SCH ×3 (06:09→21:11)
[2017-05-28 07:07] LABS: HEMOGLOBIN 9.7 g/dL (12.0-15.5); MEAN CORPUSCULAR HEMOGLOBIN 26.2 pg (27.0-33.4); MEAN CORPUSCULAR HGB CONC 33.4 g/dL (32.0-36.0); MEAN CORPUSCULAR VOLUME 79 fl (80-97); PLATELET COUNT 184 10^3/uL (150-450); RED CELL DISTRIBUTION WIDTH 14.9 % (11.5-14.0)
--- NOTE | 2017-05-28 08:37 | PDOC PROGRESS REPORT ---
Subjective-OB Progress Note for:: 05/28/17 Subjective: Day #1 s/p Doing well, bonding with baby, , states lochia is stable, pain well controlled, voiding without difficulty. Physical Exam (OB) Vital Signs: Temp Pulse Resp BP Pulse Ox 98.4 F 77 16 105/56 L 93 05/28/17 07:29 05/28/17 07:29 05/28/17 07:29 05/28/17 07:29 05/28/17 07:29 Intake & Output 05/27/17 05/28/17 05/29/17 06:59 06:59 06:59 Weight 111.8 kg - Lochia Lochia Amount: Small 10-25 ml Lochia Color: Rubra/Red - Abdomen Description: Soft, Round Hernia Present: No Fundal Description: Firm, Midline Fundal Height: u/u - u/2 Objective-Diagnostic Laboratory: 05/28/17 06:54 05/27/17 05/27/17 05/27/17 09:30 09:37 09:37 WBC 10.7 H RBC 4.38 Hgb 11.2 L Hct 34.6 L MCV 79 L MCH 25.7 L MCHC 32.5 RDW 15.0 H Plt Count 209 Seg Neutrophils % 78.6 H Lymphocytes % 13.9 Monocytes % 6.7 Eosinophils % 0.5 Basophils % 0.3 Absolute Neutrophils 8.4 H Absolute Lymphocytes 1.5 Absolute Monocytes 0.7 Absolute Eosinophils 0.1 Absolute Basophils 0.0 Urine Color YELLOW Urine Appearance SLIGHTLY-CLOUDY Urine pH 5.0 Ur Specific [place] 1.019 Urine Protein NEGATIVE Urine Glucose (UA) NEGATIVE Urine Ketones NEGATIVE Urine Blood MODERATE H Urine Nitrite NEGATIVE Ur Leukocyte Esterase NEGATIVE Blood Type O POSITIVE Antibody Screen NEGATIVE 05/28/17 06:54 WBC 10.0 RBC 3.70 L Hgb 9.7 L Hct 29.0 L MCV 79 L MCH 26.2 L MCHC 33.4 RDW 14.9 H Plt Count 184 Seg Neutrophils % Lymphocytes % Monocytes % Eosinophils % Basophils % Absolute Neutrophils Absolute Lymphocytes Absolute Monocytes Absolute Eosinophils Absolute Basophils Urine Color Urine Appearance Urine pH Ur Specific [place] Urine Protein Urine Glucose (UA) Urine Ketones Urine Blood Urine Nitrite Ur Leukocyte Esterase Blood Type Antibody Screen Assessment and Plan(PN) - Assessment and Plan (1) Vaginal delivery Is this a current diagnosis for this admission?: Yes Plan: routine pp care (2) Acute blood loss anemia Is this a current diagnosis for this admission?: Yes Plan: ferrous sulfate increase dietary iron monitor bleeding - Time Spent with Patient Time with patient: Less than 15 minutes Critical Time spent with patient: Less than 15 minutes Medications reviewed and adjusted accordingly: Yes - Disposition Anticipated Discharge: Home
[2017-05-28] MEDS: SENNOSIDES/DOCUSATE 8.6-50 MG 1 EACH TABLET PO SCH (09:59)
[2017-05-28] MEDS: FERROUS SULFATE 325 MG TABLET PO SCH ×2 (10:00→17:01)
[2017-05-28] MEDS: PRENATAL VITAMIN W DHA CAPSULE PO SCH (10:00)
[2017-05-28] MEDS: DOCUSATE SODIUM 100 MG CAPSULE PO SCH ×2 (10:00→17:01)
[2017-05-28] MEDS: ACETAMINOPHEN WITH CODEINE #3 TABLET PO PRN (16:58)
[2017-05-29] MEDS: IBUPROFEN 800 MG TABLET PO SCH ×2 (06:25→14:43)
[2017-05-29] MEDS: ACETAMINOPHEN WITH CODEINE #3 TABLET PO PRN (06:28)
--- NOTE | 2017-05-29 09:05 | PDOC PROGRESS REPORT ---
Subjective-OB Progress Note for:: 05/29/17 Subjective: Doing well, using breast pump, no depression, feeling better this , different hsb, scant lochia, hope baby can go home today, ? jaundice Physical Exam (OB) Vital Signs: Temp Pulse Resp BP Pulse Ox 97.5 F 84 14 110/64 96 05/29/17 08:43 05/29/17 08:43 05/29/17 08:43 05/29/17 08:43 05/29/17 08:43 Intake & Output 05/28/17 05/29/17 05/30/17 06:59 06:59 06:59 Intake Total 1000 Balance 1000 Weight 111.8 kg - PIH/Pre-Eclampsia DTR's: 1 + Clonus: Negative Headache: Absent Epigastric Pain: No Visual Changes: No - Lochia Lochia Amount: Scant < 10 ml Lochia Color: Rubra/Red - Abdomen Description: Tender, Soft Hernia Present: No Fundal Description: Firm, Midline Fundal Height: u/u - u/2 Objective-Diagnostic Laboratory: 05/28/17 06:54 Assessment and Plan(PN) - Assessment and Plan (1) Acute blood loss anemia Is this a current diagnosis for this admission?: Yes (2) Vaginal delivery Is this a current diagnosis for this admission?: Yes - Time Spent with Patient Time with patient: Less than 15 minutes Medications reviewed and adjusted accordingly: Yes - Disposition Anticipated Discharge: Home Within: Other - home today
--- NOTE | 2017-05-29 09:11 | PDOC DISCHARGE SUMMARY ---
Final Diagnosis Discharge Date: 05/29/17 - Final Diagnosis (1) Acute blood loss anemia Is this a current diagnosis for this admission?: Yes (2) Vaginal delivery Is this a current diagnosis for this admission?: Yes Discharge Data - Discharge Medication Home Medications: Pnv No.103/Folic/Om3s/Fish Oil [ Gummies] 1 tab PO DAILY 04/16/17 Ferrous Sulfate [Feosol 325 mg Tablet] 325 mg PO BID tablet 05/29/17 Vit/Dha [ Multi + Dha Capsule] 1 cap PO DAILY capsule Gestational Age: 39.1 Reason(s) for Admission: PROM Admission Note: Pitocin augmentation Procedures: Ultrasound Intrapartum Procedure(s): Spontaneous Vaginal Delivery - Data Baby 1 Male at 1 minute: 8 at 5 minutes: 9 Weight: 4.337 kg Home with Mother: Yes Complications: Yes - fx clavicle, jaundice - Diagnosis Test Laboratory: Temp Pulse Resp BP Pulse Ox 97.5 F 84 14 110/64 96 05/29/17 08:43 05/29/17 08:43 05/29/17 08:43 05/29/17 08:43 05/29/17 08:43 05/27/17 05/27/17 05/28/17 09:30 09:37 06:54 RBC 4.38 3.70 L Hgb 11.2 L 9.7 L Hct 34.6 L 29.0 L Urine Opiates Screen NEGATIVE - Discharge information/Instructions Discharge Activity: Activity As Tolerated, No Lifting Over 10 Pounds, No Lifting /Push/Pulling, Pelvic Rest Discharge Diet: As Tolerated, Regular Disposition: HOME, SELF-CARE Follow up with: [facility] in: 4, Weeks
[2017-05-29] MEDS: PRENATAL VITAMIN W DHA CAPSULE PO SCH (09:55)
[2017-05-29] MEDS: DOCUSATE SODIUM 100 MG CAPSULE PO SCH ×2 (09:55→17:49)
[2017-05-29] MEDS: FERROUS SULFATE 325 MG TABLET PO SCH ×2 (09:55→17:49)
[2017-05-29] MEDS: SENNOSIDES/DOCUSATE 8.6-50 MG 1 EACH TABLET PO SCH (09:56)
[2017-05-29 15:59] VITALS: BP 109/66
== END 2017-05-29 18:35 | disposition home or self-care (01) | DRG 775 ==
LOC: LC 08:09 → LR 08:40 → 2S 17:15
PROVIDERS: ADMIT Obstetrics & Gynecology; ATTEND Obstetrics & Gynecology
PROC: 10E0XZZ Delivery of Products of Conception, External Approach (ICD-10-PCS; principal; 2017-05-27)
PROC: 4A1HXCZ Monitoring of Products of Conception, Cardiac Rate, External Approach (ICD-10-PCS; 2017-05-27)
DX: O69.89X0 Labor and delivery complicated by other cord complications, not applicable or unspecified (principal); D62 Acute posthemorrhagic anemia; O99.02 Anemia complicating childbirth; Z37.0 Single live birth
CPT/HCPCS: 36415; 80307; 81005; 85025; 85027; 86592; 86850; 86900; 86901; J2590; J3490